=== PATIENT | male | born 1975 | race Caucasian/White ===

== ENCOUNTER → 2018-01-15 16:05 | Outpatient (CLI) | payer MEDICARE, SELFPAY | PROVIDERS: Visit Provider Otolaryngology | DX: H92.10 Otorrhea, unspecified ear (principal) | CPT/HCPCS: 87070; 87075; 87077; 87107; 87205 ==

== ENCOUNTER 2018-05-17 17:24 | Emergency (ER) | payer MEDICARE, SELFPAY ==
[2018-05-17 17:26] VITALS: RESP 22; BMI 43.2
[2018-05-17] MEDS: Haloperidol Lactate 5 MG/ML Vial 10 MG IM (17:39)
[2018-05-17] MEDS: DiphenhydrAMINE 50 MG/ML Syringe IM (17:39)
--- NOTE | 2018-05-17 17:39 | ED.VISSUMM ---
- ER Visit Summary Date of Service: 05/17/18 Chief Complaint: Agitation History of Present Illness: The patient is a 42 M brought in from the [facility] for acute psychosis he was pink slipped prior to arrival. I have minimal history from the patient himself since he has incomprehensible thoughts, he is quite a bit of voodoo wording, however this makes no sense to me. He has tangential thoughts. Per police department he has a history of violence in the police is worried that he may be violent now he is somewhat uncooperative. He has a history of schizophrenia with psychosis. Physical Examination: Patient has handcuffs with arms behind him for his safety. Moist mucous membranes, no obvious facial deformity No C-spine tenderness supple neck. Regular rate and rhythm without any obvious murmurs Clear lungs bilaterally speaking in full sentences without any obvious respiratory distress Abdomen soft and nontender Moves all extremities without any difficulty or pain. Skin does not show any obvious rashes or lesions, no trauma. Patient has incoherent thought process, no judgment or insight. He does not respond to most questions. His speech is pressured. I get a generalized feeling of being afraid when I am in the room. Emergency Department Course and Treatment: Patient received Haldol and Benadryl IM, he is now significantly improved, he is still psychotic but is more cooperative. He will need psychiatric hospitalization I called crisis for this. Workup is unremarkable Disposition: [Plan is to transfer to psychiatric facility] Impression: [Acute psychosis] This note was generated with [employer] dictation software. It may contain incorrect words, spelling, and punctuation that were not noted in review of the chart prior to signing ED Disposition - Plan for ED Patient: Chief Complaint: Mental Health
--- NOTE | 2018-05-17 17:42 | ED.DCSUM_ITS ---
- ER Visit Summary Date of Service: 05/17/18 Chief Complaint: Agitation History of Present Illness: The patient is a 42 M brought in from the [facility] for acute psychosis he was pink slipped prior to arrival. I have minimal history from the patient himself since he has incomprehensible thoughts, he is quite a bit of baptist wording, however this makes no sense to me. He has tangential thoughts. Per police department he has a history of violence in the police is worried that he may be violent now he is somewhat uncooperative. He has a history of schizophrenia with psychosis. Physical Examination: Patient has handcuffs with arms behind him for his safety. Moist mucous membranes, no obvious facial deformity No C-spine tenderness supple neck. Regular rate and rhythm without any obvious murmurs Clear lungs bilaterally speaking in full sentences without any obvious respiratory distress Abdomen soft and nontender Moves all extremities without any difficulty or pain. Skin does not show any obvious rashes or lesions, no trauma. Patient has incoherent thought process, no judgment or insight. He does not respond to most questions. His speech is pressured. I get a generalized feeling of being afraid when I am in the room. Emergency Department Course and Treatment: Patient received Haldol and Benadryl IM, he is now significantly improved, he is still psychotic but is more cooperative. He will need psychiatric hospitalization I called crisis for this. Workup is unremarkable Disposition: [Plan is to transfer to psychiatric facility] Impression: [Acute psychosis] This note was generated with indidebt dictation software. It may contain incorrect words, spelling, and punctuation that were not noted in review of the chart prior to signing ED Disposition - Plan for ED Patient: Chief Complaint: Mental Health
--- NOTE | 2018-05-17 18:10 | ED.RN ---
THE POLICE OFFICERS WERE TAKING THE HANDCUFFS OFF FROM BEHIND THE PATIENT BACK, THE NURSE AND ROAD MANAGER ASKED IF THE PATIENT WAS GOING TO REMAIN IN BED, THE PATIENT THEN STATED I WILL LEAVE FAST A HICCUP IF THE CUFFS WERE TAKEN OFF
[2018-05-17 18:17] VITALS: BP 160/88; PULSE 119; RESP 20; TEMP 36.8; O2SAT 98
[2018-05-17 18:45] LABS: Absolute Lymphocyte Count 1.72 X10^3/ul (0.83-4.51); Absolute Neutrophil Count 6.6 X10^3/uL (2.0-7.7); Basophil# 0.02 X10^3/uL; Basophil% 0.2 % (0-1); Eosinophil# 0.08 X10^3/uL; Eosinophils% 0.9 % (0-5); Hematocrit 41.7 % (40-54); Hemoglobin 14.7 g/dl (13.0-16.5); Lymphocyte # 1.72 X10^3/ul (4.0); Lymphocyte % 18.3 % (19-41); Mean Corp Hgb Conc 35.3 g/gl (32-36); Mean Corpuscular Hgb 28.5 pg (27.0-32.0); Mean Corpuscular Volume 80.8 fL (80-94); Mean Platelet Vol. 11.9 fl (6.2-12.0); Monocyte# 0.94 X10^3/uL; Neutrophil # 6.59 X10^3/uL (2.7-7.7); Neutrophil % 70.3 % (47-70); Platelet Count 211 K/mm3 (150-450); RBC Distribution Width CV 14.6 % (11.6-14.6); RBC Distribution Width SD 42.4 fl (35.1-43.9); Red Blood Count 5.16 M/mm3 (4.6-6.2); White Blood Count 9.4 K/mm3 (4.4-11.0)
[2018-05-17 18:50] LABS: POSITIVE COUNT NO; POSITIVE DIFFERENTIAL NO; POSITIVE MORPHOLOGY NO
[2018-05-17 18:54] LABS: Anion Gap 12 (5-15); BUN 12 mg/dL (7-18); BUN/Creat Ratio 9.8 RATIO (10-20); Calcium,Total 9.2 mg/dL (8.5-10.1); Chloride 97 mmol/L (98-107); Creatinine, Serum 1.23 mg/dL (0.70-1.30); EST Glomerular Filtration Rate 69 mL/min (>60); Est Glom Filt Rate - Afr Amer 83 mL/min (>60); Estimated Creatinine Clearance 91.89 ml/min; Glucose 433 mg/dL (74-106); Potassium 4.4 mmol/L (3.5-5.1); Sodium Level 132 mmol/L (136-145)
[2018-05-17 18:55] LABS: Alcohol, Blood (Medical)-Serum < 3.0 mg/dL
[2018-05-17 19:00] VITALS: RESP 20; O2SAT 97
[2018-05-17 19:36] LABS: Bedside Glucose 405 mg/dL (70-110)
[2018-05-17 19:47] LABS: Amphetamine Urine VISTA NEGATIVE (<1000 ng/mL); Barbiturate Urine VISTA NEGATIVE (< 200 ng/mL); Benzodiazepine Urine VISTA NEGATIVE (< 200 ng/mL); Cocaine Urine VISTA NEGATIVE (< 300 ng/mL); Ecstacy Urine VISTA NEGATIVE (< 500 ng/mL); Methadone Urine VISTA NEGATIVE (< 300 ng/mL); PCP Urine VISTA NEGATIVE (< 25 ng/mL); THC Urine VISTA NEGATIVE (< 50 ng/mL); Vista UDS pH Range 5
[2018-05-17 20:05] VITALS: RESP 18; O2SAT 98
--- NOTE | 2018-05-17 21:02 | ED.RN ---
PT UP WALKING AROUND THE ROOM AND WALKING OUT TO THE NURSE'S STATION. PT ACCUSING THE WKAME SNOW SHOVELER OF GOING FOR HIS WEAPON. PT STANDING AT THE DOOR TALKING THAT IS UNABLE TO BE UNDERSTOOD. PT GETTING INCREASINGLY AGITATED. DR SMITH NOTIFIED OF THE SAME
[2018-05-17 21:07] VITALS: RESP 18; O2SAT 97
--- NOTE | 2018-05-17 21:40 | ED.RN ---
PT UP MOVING AROUND THE ROOM, APPEARS TO BE GETTING MORE AGITATED. PT HITTING THE SHARPS CONTAINER IN THE ROOM. BROTHER IN THE ROOM ATTEMPTING TO TALK WITH THE PATIENT
[2018-05-17] MEDS: Ziprasidone IM 20 MG/ML VIAL 10 MG IM (21:50)
[2018-05-17] MEDS: LORazepam 2 MG/ML Syringe IM (21:51)
--- NOTE | 2018-05-17 21:58 | ED.RN ---
PATIENT WAS STARTING TO GET MORE AGITATED, PT WAS UP WALKING AROUND ROOM TRYING TO WALK OUT, BROTHER WAS TRYING TO CONVINCE PATIENT TO LAY BACK DOWN, PATIENT WAS STARTING TO TALK AND GO ON ABOUT RANDOM THINGS.
[2018-05-17 23:03] VITALS: BP 132/90; PULSE 120; RESP 18; O2SAT 96
[2018-05-18] VITALS (17 sets, daily range): BP systolic 125–138; BP diastolic 64–78; PULSE 89–121; RESP 14–20; O2SAT 94–99
--- NOTE | 2018-05-18 02:40 | ED.RN ---
juan miguel from [facility] called to let us know she needs more information. she needs an ekg, liver enzymes, 2 glucose readings under 200 and a sodium level better than his 132. Notified Dr. Nesbitt.
--- NOTE | 2018-05-18 02:43 | EKG12_ITS ---
[place] Reason : [facility] [place] Pressure : / mmHG Vent. Rate : 120 BPM Atrial Rate : 120 BPM P-R Int : 148 ms QRS Dur : 092 ms QT Int : 320 ms P-R-T Axes : 057 -05 077 degrees QTc Int : 452 ms Sinus tachycardia Otherwise normal ECG Confirmed by HARVINDER ALEX, RIANA ([id number]), scientific editor NINA PACKER ([id number]) on 05/20/2018 9:41:33 AM Referred By: VICTORIANO Confirmed By:RIANA BLANTON MD
[2018-05-18 02:45] LABS: Bedside Glucose 347 mg/dL (70-110)
[2018-05-18] MEDS: Insulin Lispro 100 UNIT/ML INSULN.PEN 12 UNIT SC (02:58)
[2018-05-18 05:15] LABS: Bedside Glucose 380 mg/dL (70-110)
--- NOTE | 2018-05-18 05:22 | ED.RN ---
BROTHER CAME TO THE NURSE'S STATION STATING PT GETTING ANXIOUS AGAIN. CAN HE HAVE SOME MORE MEDICINE. THIS NURSE SPOKE WITH DR PASTRANA ABOUT THE SAME. ORDER PLACED
[2018-05-18] MEDS: Ziprasidone IM 20 MG/ML VIAL 10 MG IM (05:45)
--- NOTE | 2018-05-18 06:19 | ED.RN ---
PT CAME TO THE NURSE'S STATION REQUESTING HIS SHIRT. WHEN THE PT WAS TOLD HE COULD NOT HAVE HIS SHIRT THE PT BECAME UPSET. PT STATES I AM THE [facility]. 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 YOU NEED TO GET OUT. I HAVE BEEN IN THIS ROOM FOR THE PAST 24 HOURS. I AM THE LAST [place] WITNESS ON THE [place]. THE PT BROTHER ATTEMPTING TO CONVINCE THE PATIENT TO GO BACK INTO THE ROOM. PT STATES I DO NOT LIKE THE ACOUSTICS IN THIS ROOM. GET ME ANOTHER ROOM. PT INFORMED THERE ARE NO OTHER ROOMS AVAILABLE AT THIS TIME APPROPRIATE FOR THE PATIENT.
[2018-05-18] MEDS: LORazepam 2 MG/ML Syringe IM (06:28)
--- NOTE | 2018-05-18 06:34 | ED.RN ---
PER [facility], UNABLE TO ACCEPT THE PATIENT
--- NOTE | 2018-05-18 09:50 | ED.RN ---
[facility] WILL NOT BE AVAILABLE FOR A COUPLE HOURS
--- NOTE | 2018-05-18 11:45 | NURSING ---
WE WILL CALL YOU WHEN THE [facility] IS ON THE WAY. THEY WON'T BE AVAILABLE UNTIL SOMETIME THIS AFTERNOON.
--- NOTE | 2018-05-18 14:00 | ED.RN ---
called [facility], states that [facility] will be here in hr and a half
== END 2018-05-18 16:53 ==
PROVIDERS: Emergency Provider Emergency Medicine
DX: F20.9 Schizophrenia, unspecified (principal); E11.9 Type 2 diabetes mellitus without complications; Z91.14 Patient's other noncompliance with medication regimen; Z79.899 Other long term (current) drug therapy
CPT/HCPCS: 36415; 80048; 80307; 80320; 82962; 85025; 93005; 96372; 99285; G0480; J3486

== ENCOUNTER 2021-11-28 12:30 | Outpatient (CLI) | payer MEDICARE, MEDICAID, SELFPAY ==
[2021-11-28 12:31] VITALS: BP 204/106; PULSE 101; RESP 16; TEMP 36.3; O2SAT 97; BMI 44.9
[2021-11-28 12:39] VITALS: BMI 44.9
--- NOTE | 2021-11-28 13:24 | ED.RN ---
WRITTEN ORDER TO ADMINISTER PER DR KEENAN ON FILE
== END 2021-11-28 13:24 | disposition home or self-care (01) ==
LOC: ED 13:09 → EDREF 14:44
PROVIDERS: Visit Provider Emergency Medicine
DX: Z00.00 Encounter for general adult medical examination without abnormal findings (principal)

== ENCOUNTER 2023-05-05 17:41 | Emergency (ER) | payer MEDICARE, MEDICAID, SELFPAY ==
[2023-05-05 17:44] VITALS: BP 194/87; PULSE 96; RESP 18; TEMP 36.2; O2SAT 94
[2023-05-05 17:50] VITALS: BMI 52.2
[2023-05-05 18:01] VITALS: O2SAT 99
--- NOTE | 2023-05-05 18:01 | EKG12_ITS ---
Test Reason : Blood Pressure : / mmHG Vent. Rate : 090 BPM Atrial Rate : 090 BPM P-R Int : 160 ms QRS Dur : 096 ms QT Int : 344 ms P-R-T Axes : 046 -19 058 degrees QTc Int : 420 ms Normal sinus rhythm Normal ECG Confirmed by RIANA BLANTON MD ([id number]), manuscript editor REY CONCEPCION ([id number]) on 05/08/2023 1:13:51 PM Referred By: JUSTIN Confirmed By:RIANA BLANTON MD
--- NOTE | 2023-05-05 18:02 | CT_ITS ---
STUDY: CT BRAIN WITHOUT CONTRAST REASON FOR EXAM: Male, 47 years old. dizziness RADIATION DOSAGE (If Supplied By Facility): CTDIvol = ( 44.99 ) mGy, DLP = ( 931.09 ) mGycm TECHNIQUE: Transaxial CT imaging of the brain was performed without administration of intravenous contrast material. Individualized dose optimization techniques were used for this CT. COMPARISON: No relevant priors. FINDINGS: Normal soft tissue structures. Normal calvarium. Normal size ventricles and extra-axial spaces for the patient''s age. Normal white matter tracts of the cerebral hemispheres. Normal basal ganglia and thalami. Normal brainstem. Normal cerebellum. There is no intracranial hemorrhage. There are no findings of an acute ischemic infarction. Normal visualized paranasal sinuses. CT/Brain/Head without Contrast IMPRESSION: Normal unenhanced CT scan of the brain. Electronically Signed: Jermaine Jamison MD at 18:39 EDT ,
--- NOTE | 2023-05-05 18:12 | RAD_ITS ---
STUDY: X-RAY CHEST REASON FOR EXAM: Male, 47 years old. chest pain TECHNIQUE: Frontal and lateral views of the chest. COMPARISON: None. FINDINGS: The lungs are clear and expanded. There is no demonstrated pleural abnormality. Normal size heart. Normal mediastinum and massimo. Normal visualized pulmonary arteries. Normal visualized aortic arch and descending thoracic aorta. Normal visualized thoracic spine. Normal visualized ribs, clavicles, and shoulders. There is no demonstrated abnormality of the visualized soft tissue structures of the upper abdomen. RAD/Chest PA and Lateral IMPRESSION: Normal x-ray examination of the chest. Electronically Signed: Jermaine Jamison MD at 18:40 EDT ,
--- NOTE | 2023-05-05 18:16 | EX.ED.DYSGE1 ---
HPI <CALLUM Hu - Last Filed: 05/05/23 20:48> History of Present Illness Chief Complaint: Chest Pain Narrative Narrative: Patient presenting today due to an episode of dizziness that he describes as feeling intoxicated, lightheadedness, diaphoresis, nausea, and left-sided chest tightness that started while he was driving this evening. He reports that it lasted for about 5 to 10 minutes. He did begin to dry heave but did not have any vomiting. He reports that he has had panic attacks in the past that were similar in symptoms but not this severe. He reports that his symptoms have completely resolved. He denies any history of vertigo. PMH includes type 2 diabetes mellitus, depression, anxiety, bipolar disorder. He reports that about a month ago he noticed floaters and spots in his vision and felt that his visual acuity has not been as good, this started to get better but felt like this morning and may have worsened again. He has not had this evaluated. PFSH <CALLUM Hu - Last Filed: 05/05/23 20:48> PENDING SALE TO [facility] Medical History Acute depression Anxiety Arthritis Bipolar 1 disorder Diabetic neuropathy Gout Psoriasis Type 2 diabetes mellitus Home Medications doxepin 25 mg capsule 25 - 50 mg PO DAILY PRN PRN Anxiety 05/17/18 [History Last Taken Unknown] albuterol sulfate 90 mcg/actuation aerosol inhaler 2 inh inhalation Q4H PRN shortness of breath or wheezing 05/05/23 [History Last Taken Unknown] allopurinol 300 mg tablet 300 mg PO DAILY 05/05/23 [History Last Taken Unknown] atorvastatin 80 mg tablet 80 mg PO QHS 05/05/23 [History Last Taken Unknown] cholecalciferol (vitamin D3) 1,250 mcg (50,000 unit) capsule 50,000 unit PO Q7D 05/05/23 [History Last Taken Unknown] gabapentin 600 mg tablet 600 mg PO Q12H 05/05/23 [History Last Taken Unknown] haloperidol 5 mg tablet 5 mg PO .COMPLEX 05/05/23 [History Last Taken Unknown] hydroxyzine HCl 50 mg tablet 50 mg PO Q8H 05/05/23 [History Last Taken Unknown] ibuprofen 800 mg tablet 800 mg PO Q8H 05/05/23 [History Last Taken Unknown] insulin glargine 100 unit/mL (3 mL) subcutaneous pen (Lantus Solostar U-100 Insulin) 75 unit subcut QHS 05/05/23 [History Last Taken Unknown] insulin lispro 100 unit/mL subcutaneous pen (Humalog KwikPen (U-100) Insulin) 25 unit subcut TIDCM 05/05/23 [History Last Taken Unknown] lisinopril 10 mg tablet 10 mg PO DAILY 05/05/23 [History Last Taken Unknown] metformin 500 mg tablet 2,000 mg PO QHS 05/05/23 [History Last Taken Unknown] paliperidone palmitate 234 mg/1.5 mL intramuscular syringe (Invega Sustenna) 234 mg IM Q30D 05/05/23 [History Last Taken Unknown] sitagliptin phosphate 100 mg tablet (Januvia) 100 mg PO DAILY 05/05/23 [History Last Taken Unknown] Allergy/AdvReac Type Severity Reaction Status Date / Time hydrocodone Allergy Mild Itching Verified 05/05/23 17:43 oxycodone Allergy Mild Itching Verified 05/05/23 17:43 Surgical History Hx of tonsillectomy Social History Smoking Status: Former smoker ROS <CALLUM Hu - Last Filed: 05/05/23 20:48> ROS ED Constitutional Constitutional ED: Denies chills or fever(s) Cardiovascular Cardiovascular: Reports chest pain; Denies palpitations Respiratory/Chest Respiratory/Chest: Denies cough, dyspnea or dyspnea on exertion Gastrointestinal Gastrointestinal: Reports nausea; Denies abdominal pain or vomiting Musculoskeletal Musculoskeletal: Denies arthralgias or myalgias Neurologic Neurologic: Reports dizziness; Denies headache(s) EXAM <CALLUM Hu - Last Filed: 05/05/23 20:48> Physical Exam Const Vital Signs: 05/05/23 17:44 05/05/23 18:01 05/05/23 20:44 Temperature 97.1 F L 98.6 F Temperature Source Temporal Pulse Rate 96 78 Respiratory Rate 18 14 Blood Pressure 194/87 H 145/76 H Blood Pressure Mean 122 Pulse Ox 94 99 97 Oxygen Delivery Method Room Air Room Air Positive well nourished, well developed and no apparent distress General Appearance ED: well developed HEENT Reports normocephalic and head/scalp atraumatic Mouth ED: Yes moist mucous membranes normal Eyes PERRL and EOMs intact bilaterally Neck full ROM and supple Chest Wall inspection of chest normal Resp normal respiratory effort and clear to auscultation bilaterally Cardio regular rate and regular rhythm GI soft to palpation, non-tender, non-distended and no masses Back/Spine normal ROM and normal to inspection Extremity normal to inspection and full ROM Neuro oriented x3, CN's II-XII intact bilaterally, moves all extremities, no focal motor deficits and no sensory deficits noted Sensorium / Orientation: awake and alert Gait (Neuro): normal gait Motor Exam: strength 5/5 throughout Psych mental status grossly normal and thought process normal Skin no rashes or lesions noted and no wounds <Dr. Eddy Carbone MD - Last Filed: 05/05/23 22:32> Physical Exam Const Vital Signs: 05/05/23 17:44 05/05/23 18:01 05/05/23 20:44 Temperature 97.1 F L 98.6 F Temperature Source Temporal Pulse Rate 96 78 Respiratory Rate 18 14 Blood Pressure 194/87 H 145/76 H Blood Pressure Mean 122 Pulse Ox 94 99 97 Oxygen Delivery Method Room Air Room Air MDM <CALLUM Hu - Last Filed: 05/05/23 20:48> [facility] Narrative Medical decision making narrative: Patient presenting due to an episode of dizziness that he describes as feeling intoxicated, lightheadedness, dry heaving, nausea, and left-sided chest pain started while he was driving and lasted for about 5 to 10 minutes and completely resolved. He reports that he feels fine now and is upset that his family member brought him in because he wants to go home to, and relax. He is well-appearing and in no acute distress. He is hypertensive here. Labs to be obtained to rule out leukocytosis, anemia, electrolyte abnormality, and ACS. Head CT will be obtained. Delta troponin WNL, EKG is normal sinus rhythm. This could possibly be a vasovagal episode or vertigo. Head CT unremarkable. Labs overall unremarkable aside from mild anemia and elevated glucose. Patient reports that he needs a podiatry referral, I will give him this. He is to follow-up with his PCP and will be discharged home in stable condition. He is comfortable with plan. NIH 0. I have personally performed a face to face assessment of the patient and have reviewed the ALEJANDRINA Note. I performed a substantive portion of the visit including all aspects of the following. My garza findings include: History is remarkable for nausea, diaphoresis, dizziness, which she defines as spinning and chest discomfort. His symptoms started while he was driving. He was going to [place] to get sandwiches with the family. He denied double vision or blurred vision. He denied headache. He denied neck pain or neck stiffness. He is not a good informant. Brother assisted and drove him home and then to the emergency department. His blood sugar at home was 136. Brother states he was pale, clammy and profusely sweating. He subsequently developed some chest discomfort. He denies vomiting or diarrhea. He denies black or maroon stool. He denies urologic symptoms. Exam is remarkable for morbid obesity. HEENT exam is unremarkable. Neck is supple. Lungs are clear to auscultation. Heart is regular and there is no murmur, gallop or rub. Rate is normal. Abdomen is soft flabby nontender. Unable to appreciate palpable pulsatile mass. Patient has edema of his lower extremities. He is alert oriented x3. Cranials 2 through 12 are intact. He moves all extremities with no motor or sensory deficit. There is no clonus or Babinski sign noted. Medical Decision Making suspect patient had a vasovagal episode possible vertigo. Since patient brother was not here with him complaining of vertigo diabetic and hypertension concerned this may represent a problem with the cerebellum a CT of the head was obtained. CT of the head was reviewed by me and no obvious abnormality. Radiology interpretation was reviewed. Electrolyte panel was obtained to assess for hyperglycemia, hypoglycemia and any kidney problems or electrolyte abnormality. CBC to assess H&H. Other additions or changes: [None] Lab Data Attestation: I reviewed the patient's lab results. Labs: Laboratory Results - last 24 hr 05/05/23 05/05/23 18:00 19:59 WBC 8.0 RBC 4.05 L Hgb 11.5 L Hct 34.5 L MCV 85.2 MCH 28.4 MCHC 33.3 RDW Std Deviation 43.7 RDW Coeff of Luciana 14.3 Plt Count 163 MPV 11.9 Immature Gran % (Auto) 0.500 Neut % (Auto) 71.8 H Lymph % (Auto) 18.9 L Snyder % (Auto) 5.7 Eos % (Auto) 2.8 Baso % (Auto) 0.3 Absolute Neuts (auto) 5.7 Absolute Lymphs (auto) 1.50 Nucleated RBC % 0 Sodium 138 Potassium 4.4 Chloride 107 Carbon Dioxide 27.0 Anion Gap 4 L BUN 21 H Creatinine 1.18 Estim Creat Clear Calc 88.40 Est GFR (MDRD) Af Amer 85 Est GFR (MDRD) Non-Af 71 BUN/Creatinine Ratio 17.8 Glucose 267 H Calcium 8.5 Troponin I High Sens 14 11 Radiography X-Ray: Read by ED Physician and Read by Radiologist Diagnostic Testing: Clinical Impression(s) from Imaging Studies Brain CT 05/05/23 18:02 IMPRESSION: Normal unenhanced CT scan of the brain. Electronically Signed: Jermaine Jamison MD at 18:39 EDT , Chest X-Ray 05/05/23 18:12 IMPRESSION: Normal x-ray examination of the chest. Electronically Signed: Jermaine Jamison MD at 18:40 EDT , EKG Initial EKG: Comments: 90 bpm, normal sinus rhythm, no ST elevation, reviewed and interpreted by attending ED physician <Dr. Eddy Carbone MD - Last Filed: 05/05/23 22:32> [facility] MDM Narrative Medical decision making narrative: Patient presenting due to an episode of dizziness that he describes as feeling intoxicated, lightheadedness, dry heaving, nausea, and left-sided chest pain started while he was driving and lasted for about 5 to 10 minutes and completely resolved. He reports that he feels fine now and is upset that his family member brought him in because he wants to go home to, and relax. He is well-appearing and in no acute distress. He is hypertensive here. Labs to be obtained to rule out leukocytosis, anemia, electrolyte abnormality, and ACS. Head CT will be obtained. I have personally performed a face to face assessment of the patient and have reviewed the ALEJANDRINA Note. I performed a substantive portion of the visit including all aspects of the following. My garza findings include: History is remarkable for nausea, diaphoresis, dizziness, which she defines as spinning and chest discomfort. His symptoms started while he was driving. He was going to [place] to get sandwiches with the family. He denied double vision or blurred vision. He denied headache. He denied neck pain or neck stiffness. He is not a good informant. Brother assisted and drove him home and then to the emergency department. His blood sugar at home was 136. Brother states he was pale, clammy and profusely sweating. He subsequently developed some chest discomfort. He denies vomiting or diarrhea. He denies black or maroon stool. He denies urologic symptoms. Exam is remarkable for morbid obesity. HEENT exam is unremarkable. Neck is supple. Lungs are clear to auscultation. Heart is regular and there is no murmur, gallop or rub. Rate is normal. Abdomen is soft flabby nontender. Unable to appreciate palpable pulsatile mass. Patient has edema of his lower extremities. He is alert oriented x3. Cranials 2 through 12 are intact. He moves all extremities with no motor or sensory deficit. There is no clonus or Babinski sign noted. Medical Decision Making suspect patient had a vasovagal episode possible vertigo. Since patient brother was not here with him complaining of vertigo diabetic and hypertension concerned this may represent a problem with the cerebellum a CT of the head was obtained. CT of the head was reviewed by me and no obvious abnormality. Radiology interpretation was reviewed. Electrolyte panel was obtained to assess for hyperglycemia, hypoglycemia and any kidney problems or electrolyte abnormality. CBC to assess H&H. Other additions or changes: [None] Lab Data Lab results narrative: White count is normal. Patient has mild anemia with disease. First troponin is normal at 14. Basic metabolic panel is remarked for glucose of 267 with normal CO2 and anion gap. Labs: Laboratory Results - last 24 hr 05/05/23 05/05/23 18:00 19:59 WBC 8.0 RBC 4.05 L Hgb 11.5 L Hct 34.5 L MCV 85.2 MCH 28.4 MCHC 33.3 RDW Std Deviation 43.7 RDW Coeff of Luciana 14.3 Plt Count 163 MPV 11.9 Immature Gran % (Auto) 0.500 Neut % (Auto) 71.8 H Lymph % (Auto) 18.9 L Snyder % (Auto) 5.7 Eos % (Auto) 2.8 Baso % (Auto) 0.3 Absolute Neuts (auto) 5.7 Absolute Lymphs (auto) 1.50 Nucleated RBC % 0 Sodium 138 Potassium 4.4 Chloride 107 Carbon Dioxide 27.0 Anion Gap 4 L BUN 21 H Creatinine 1.18 Estim Creat Clear Calc 88.40 Est GFR (MDRD) Af Amer 85 Est GFR (MDRD) Non-Af 71 BUN/Creatinine Ratio 17.8 Glucose 267 H Calcium 8.5 Troponin I High Sens 14 11 Radiography Diagnostic Testing: Clinical Impression(s) from Imaging Studies Brain CT 05/05/23 18:02 IMPRESSION: Normal unenhanced CT scan of the brain. Electronically Signed: Jermaine Jamison MD at 18:39 EDT , Chest X-Ray 05/05/23 18:12 IMPRESSION: Normal x-ray examination of the chest. Electronically Signed: Jermaine Jamison MD at 18:40 EDT , Discharge Plan Triage Chief Complaint: Chest Pain ED Midlevel Provider: Leilani Yi ED Provider: Eddy Carbone Dx/Rx/DC Orders Clinical Impression: Dizziness, Light headed, Diaphoresis, Chest pain Instructions: ED Chest Pain, Uncertain Cause, ED Dizziness, Uncertain Cause Prescriptions: No Action doxepin 25 MG capsule 25 - 50 mg PO DAILY PRN PRN (Reason: Anxiety) allopurinol 300 mg tablet 300 mg PO DAILY Patient Comments: take 1 tablet by mouth once daily albuterol sulfate 90 mcg/actuation HFA aerosol inhaler 2 inh INHALATION Q4H PRN (Reason: shortness of breath or wheezing) Patient Comments: inhale 2 puffs by mouth every 4 hours if needed for wheezing metformin 500 mg tablet 2,000 mg PO QHS Patient Comments: take 4 tablets by mouth at bedtime atorvastatin 80 mg tablet 80 mg PO QHS Patient Comments: take 1 tablet by mouth at bedtime gabapentin 600 mg tablet 600 mg PO Q12H Patient Comments: take 1 tablet by mouth twice a day haloperidol 5 mg tablet 5 mg PO .COMPLEX Patient Comments: take 1 tablet by mouth once daily if needed 1 week PRIOR TO INJECTION Rx Instructions: 5 mg orally daily one week prior to injection; ibuprofen 800 mg tablet 800 mg PO Q8H Patient Comments: take 1 tablet by mouth three times a day if needed hydroxyzine HCl 50 mg tablet 50 mg PO Q8H Patient Comments: take 1 tablet by mouth three times a day if needed for anxiety lisinopril 10 mg tablet 10 mg PO DAILY Patient Comments: take 1 tablet by mouth once daily insulin lispro [Humalog KwikPen Insulin] 100 unit/mL insulin pen 25 unit SUBCUT TIDCM Patient Comments: inject 25 units subcutaneously three times a day before meals Januvia 100 mg tablet 100 mg PO DAILY Patient Comments: take 1 tablet by mouth daily cholecalciferol (vitamin D3) 1,250 mcg (50,000 unit) capsule 50,000 unit PO Q7D Patient Comments: take 1 capsule by mouth every week insulin glargine [Lantus Solostar U-100 Insulin] 100 unit/mL (3 mL) insulin pen 75 unit SUBCUT QHS Patient Comments: inject 75 units subcutaneously at bedtime Invega Sustenna 234 mg/1.5 mL syringe 234 mg IM Q30D Primary Care Provider: Elizabeth Hurst Referrals: Laz Jin DPM [Med Staff - Active Staff] - 5-7 Days Elizabeth Hurst DO [Primary Care Provider] - Activity Restrictions/Additional Instructions: Please follow-up with your PCP in 5 to 7 days. Follow-up with podiatry as well. Return for any worsening symptoms Disposition Disposition: Home, Self Care Discharge Date/Time: 05/05/23 20:57
[2023-05-05 18:21] LABS: Absolute Neutrophil Count 5.7 X10^3/uL (2.0-7.7); Basophil# 0.02 X10^3/uL; Basophil% 0.3 % (0-1); Eosinophil# 0.22 X10^3/uL; Eosinophils% 2.8 % (0-5); Hematocrit 34.5 % (40-54); Hemoglobin 11.5 g/dL (13.0-16.5); Lymphocyte % 18.9 % (19-41); Mean Corp Hgb Conc 33.3 g/dL (32-36); Mean Corpuscular Hgb 28.4 pg (27.0-32.0); Mean Corpuscular Volume 85.2 fL (80-94); Mean Platelet Vol. 11.9 fl (6.2-12.0); Monocyte# 0.45 X10^3/uL; Monocyte% 5.7 % (0-10); NRBC Flagged by Analyzer 0 % (0-5); Neutrophil # 5.72 X10^3/uL (2.7-7.7); Neutrophil % 71.8 % (47-70); Platelet Count 163 K/mm3 (150-450); RBC Distribution Width CV 14.3 % (11.6-14.6); RBC Distribution Width SD 43.7 fl (35.1-43.9); Red Blood Count 4.05 M/mm3 (4.6-6.2)
[2023-05-05 18:41] LABS: Anion Gap 4 (5-15); BUN 21 mg/dL (7-18); BUN/Creat Ratio 17.8 RATIO (10-20); Calcium,Total 8.5 mg/dL (8.5-10.1); Chloride 107 mmol/L (98-107); Creatinine, Serum 1.18 mg/dL (0.70-1.30); EST Glomerular Filtration Rate 71 mL/min (>60); Est Glom Filt Rate - Afr Amer 85 mL/min (>60); Glucose 267 mg/dL (74-106); Potassium 4.4 mmol/L (3.5-5.1); Sodium Level 138 mmol/L (136-145); Troponin-I HS 14 pg/mL (3.0-78.0)
[2023-05-05 20:26] LABS: Troponin-I HS 11 pg/mL (3.0-78.0)
[2023-05-05 20:44] VITALS: BP 145/76; PULSE 78; RESP 14; TEMP 37; O2SAT 97
== END 2023-05-05 20:57 | disposition home or self-care (01) ==
PROVIDERS: Physician Assistant; Emergency Provider Emergency Medicine; Visit Provider Emergency Medicine
DX: R42 Dizziness and giddiness (principal); F31.9 Bipolar disorder, unspecified; E11.40 Type 2 diabetes mellitus with diabetic neuropathy, unspecified; Z79.4 Long term (current) use of insulin; R61 Generalized hyperhidrosis; R07.9 Chest pain, unspecified; F41.9 Anxiety disorder, unspecified; Z87.891 Personal history of nicotine dependence; Z79.84 Long term (current) use of oral hypoglycemic drugs; Z79.899 Other long term (current) drug therapy
CPT/HCPCS: 70450; 71046; 80048; 84484; 85025; 93005; 99284; A4216

== ENCOUNTER 2023-05-09 23:20 | Observation (INO) | payer MEDICARE, MEDICAID, SELFPAY ==
--- NOTE | 2023-05-09 | RAD_ITS ---
INDICATION: chest pain EXAMINATION/TECHNIQUE: X-RAY - XR Chest 1 View COMPARISON: Chest x-ray from 05/05/2023 FINDINGS: LINES/DEVICES: None. LUNGS: No pulmonary edema or focal airspace consolidation. No sizable pleural effusion. No pneumothorax detected. Stable slightly elevated right hemidiaphragm. MEDIASTINUM AND CARDIOVASCULAR STRUCTURES: Heart size within normal limits. Mediastinal contours unremarkable. BONES AND SOFT TISSUES: No acute findings. RAD/Chest 1 View (Portable) IMPRESSION: No radiographic evidence of acute cardiopulmonary disease. Electronically Signed: Toy Field MD at 1:04 EDT ,
[2023-05-09 23:22] VITALS: BP 182/83; PULSE 81; RESP 17; TEMP 36.6; O2SAT 91
--- NOTE | 2023-05-09 23:34 | EKG12_ITS ---
Test Reason : DYSRHYTHMIA Blood Pressure : / mmHG Vent. Rate : 082 BPM Atrial Rate : 082 BPM P-R Int : 174 ms QRS Dur : 096 ms QT Int : 364 ms P-R-T Axes : 017 -05 063 degrees QTc Int : 425 ms Normal sinus rhythm Normal ECG Confirmed by HARVINDER ALEX, RIANA ([id number]), editorial specialist REY CONCEPCION ([id number]) on 05/12/2023 7:39:03 AM Referred By: WANDA Confirmed By:RIANA BLANTON MD
[2023-05-09 23:36] VITALS: O2SAT 94
[2023-05-09] MEDS: 0.9% Normal Saline (1000mL) 1,000 ML 1000 ML IV (23:44)
[2023-05-10] VITALS (10 sets, daily range): BP systolic 150–201; BP diastolic 81–95; PULSE 77–94; RESP 16–18; TEMP 36.3–36.9; O2SAT 88–99; BMI 49.6
[2023-05-10 00:03] LABS: Absolute Lymphocyte Count 0.98 X10^3/uL (0.83-4.51); Absolute Neutrophil Count 5.9 X10^3/uL (2.0-7.7); Basophil# 0.02 X10^3/uL; Basophil% 0.3 % (0-1); Eosinophil# 0.15 X10^3/uL; Eosinophils% 1.9 % (0-5); Hematocrit 33.6 % (40-54); Hemoglobin 11.2 g/dL (13.0-16.5); Lymphocyte # 0.98 X10^3/ul (0.83-4.51); Lymphocyte % 12.6 % (19-41); Mean Corp Hgb Conc 33.3 g/dL (32-36); Mean Corpuscular Hgb 28.8 pg (27.0-32.0); Mean Corpuscular Volume 86.4 fL (80-94); Mean Platelet Vol. 12.1 fl (6.2-12.0); Monocyte# 0.55 X10^3/uL; Monocyte% 7.1 % (0-10); NRBC Flagged by Analyzer 0 % (0-5); Neutrophil # 5.94 X10^3/uL (2.7-7.7); Neutrophil % 76.6 % (47-70); Platelet Count 149 K/mm3 (150-450); RBC Distribution Width CV 14.5 % (11.6-14.6); RBC Distribution Width SD 44.9 fl (35.1-43.9); Red Blood Count 3.89 M/mm3 (4.6-6.2); White Blood Count 7.8 K/mm3 (4.4-11.0)
--- NOTE | 2023-05-10 00:04 | CT_ITS ---
INDICATION: vision loss, dizziness, emesis EXAMINATION: CTA CAROTIDS AND BRAIN - CTA Head and Neck W/ Contrast Injection (and W/O Contrast Images if performed) TECHNIQUE: Routine unenhanced CT brain performed then CTA of the head and neck was performed with post processing of the angiographic images for volumetric reconstructions. In addition, images were obtained of the [place]ie Ira of [place]. Nascet criteria using the distal ICAs for comparison were used for evaluation of stenoses. 3D reconstructions were reviewed. A radiation dose optimization technique was used for this scan. IV Contrast dosage and agent: 100 cc [id number] COMPARISON: Unenhanced CT brain from 05/05/2023 FINDINGS: -- UNENHANCED BRAIN: No intracranial hemorrhage or evidence of acute major territorial infarct. Mild chronic periventricular white matter lucencies. No intracranial edema, mass effect or midline shift. Normal ventricles, with no hydrocephalus. Calvarium is intact. There is fusion/occipitalization of C1 to skull base. Calvarium is intact. Mastoid air cells are well-pneumatized. Paranasal sinuses are clear. Unremarkable orbits and globes. --NECK: AORTIC ARCH AND BRANCHES: No aneurysm, dissection, occlusion or significant stenosis. RIGHT CCA: No occlusion, significant stenosis or dissection. RIGHT ICA: No occlusion, significant stenosis or dissection. LEFT CCA: No occlusion, significant stenosis or dissection. LEFT ICA: No occlusion, significant stenosis or dissection. RIGHT VERTEBRAL ARTERY: No occlusion, significant stenosis or dissection. LEFT VERTEBRAL ARTERY: No occlusion, significant stenosis or dissection. NECK SOFT TISSUES: No acute findings. LUNG APICES: Clear. BONES: No acute findings. Posterior disc osteophyte complexes resulting in multilevel mild to moderate cervical spinal canal stenosis. --HEAD: --Anterior circulation: ICAs: No significant stenosis at the intracranial/visualized segments. ACAs: No significant stenosis at the visualized segments. ACOM: Present. MCAs: No significant stenosis at the visualized segments. --Posterior circulation: PCOMs: Not visualized. electrical logger: No significant stenosis at the visualized segments. BASILAR ARTERY: No significant stenosis. VERTEBRAL ARTERIES: No significant stenosis at the intradural/visualized segments. No evidence of intracranial aneurysm or vascular malformation. CT/CTA Head AND Neck W/ Contrast IMPRESSION: 1. CTA head and neck with no acute arterial occlusive disease or other acute abnormality. 2. Mild chronic periventricular white matter disease but no evidence of acute intracranial abnormality. 3. Multilevel cervical spondylosis. Electronically Signed: Toy Field MD at 1:54 EDT ,
[2023-05-10 00:14] LABS: AST(SGOT) 13 U/L (15-37); Alanine Aminotransfer ALT/SGPT 23 U/L (16-61); Albumin, Serum 3.3 g/dL (3.2-5.0); Alkaline Phosphatase 69 U/L (45-117); Anion Gap 3 (5-15); BUN 20 mg/dL (7-18); Bilirubin, Direct 0.12 mg/dL (0.00-0.30); Calcium,Total 8.6 mg/dL (8.5-10.1); Chloride 111 mmol/L (98-107); Creatinine, Serum 1.25 mg/dL (0.70-1.30); EST Glomerular Filtration Rate 66 mL/min (>60); Est Glom Filt Rate - Afr Amer 80 mL/min (>60); Glucose 156 mg/dL (74-106); Lipase 40 U/L (13-75); Potassium 4.3 mmol/L (3.5-5.1); Protein, Total 6.3 g/dL (6.4-8.2); Sodium Level 140 mmol/L (136-145); Troponin-I HS 9 pg/mL (3.0-78.0)
--- NOTE | 2023-05-10 00:22 | EX.ED.DYSGE1 ---
HPI History of Present Illness Chief Complaint: General Illness Narrative Narrative: 47-year-old male presenting with dizziness. He is describes it as the room starting to spin but then stabilizes. States that it is repetitive. It started earlier tonight while he was in his home. He went and sat in his bedroom and states that symptoms kept coming. He reports that he had similar symptoms on Thursday and was seen in the ER and had a full work-up which was negative. He tells me that about 3 weeks ago he had a visual field cut in the left eye which was the upper vision which is slowly started to resolve but now he has blurry vision in the left eye. He has not seen a eye doctor. He states that his dizziness did get better initially after he was seen the other day. He was not given anything for vertigo for home. He denies slurred speech, limitation of using arms or legs. Numbness or tingling. His only complaint is intermittent vertiginous symptoms and visual field cut. [facility] Medical History (Updated 05/10/23 @ 02:[address] Anitha Bullock MD) Anxiety Anxiety and depression Arthritis Bipolar 1 disorder Diabetic neuropathy Gout Psoriasis Type 2 diabetes mellitus Home Medications doxepin 25 mg capsule 25 - 50 mg PO DAILY PRN PRN Anxiety 05/17/18 [History Last Taken Unknown] albuterol sulfate 90 mcg/actuation aerosol inhaler 2 inh inhalation Q4H PRN shortness of breath or wheezing 05/05/23 [History Last Taken Unknown] allopurinol 300 mg tablet 300 mg PO DAILY 05/05/23 [History Last Taken Unknown] atorvastatin 80 mg tablet 80 mg PO QHS 05/05/23 [History Last Taken Unknown] cholecalciferol (vitamin D3) 1,250 mcg (50,000 unit) capsule 50,000 unit PO Q7D 05/05/23 [History Last Taken Unknown] gabapentin 600 mg tablet 600 mg PO Q12H 05/05/23 [History Last Taken Unknown] haloperidol 5 mg tablet 5 mg PO .COMPLEX 05/05/23 [History Last Taken Unknown] hydroxyzine HCl 50 mg tablet 50 mg PO Q8H 05/05/23 [History Last Taken Unknown] ibuprofen 800 mg tablet 800 mg PO Q8H 05/05/23 [History Last Taken Unknown] insulin glargine 100 unit/mL (3 mL) subcutaneous pen (Lantus Solostar U-100 Insulin) 75 unit subcut QHS 05/05/23 [History Last Taken Unknown] insulin lispro 100 unit/mL subcutaneous pen (Humalog KwikPen (U-100) Insulin) 25 unit subcut TIDCM 05/05/23 [History Last Taken Unknown] lisinopril 10 mg tablet 10 mg PO DAILY 05/05/23 [History Last Taken Unknown] metformin 500 mg tablet 2,000 mg PO QHS 05/05/23 [History Last Taken Unknown] paliperidone palmitate 234 mg/1.5 mL intramuscular syringe (Invega Sustenna) 234 mg IM Q30D 05/05/23 [History Last Taken 05/08/23] sitagliptin phosphate 100 mg tablet (Januvia) 100 mg PO DAILY 05/05/23 [History Last Taken Unknown] Allergy/AdvReac Type Severity Reaction Status Date / Time hydrocodone Allergy Mild Itching Verified 05/05/23 17:43 oxycodone Allergy Mild Itching Verified 05/05/23 17:43 Family History Mother Hypertension Diabetes Father Anxiety and depression Paranoid schizophrenia Suicide and self-inflicted injury by firearm Surgical History Hx of tonsillectomy Social History (Updated 05/10/23 @ 02:[address] Anitha Bullock MD) household members: none Smoking Status: Former smoker alcohol intake: never substance use type: does not use ROS ROS ED Constitutional Constitutional ED: Denies chills, fever(s) or sweats Eyes Eyes: Reports blurry vision left and change in vision left ENT ENT ED: Denies ear pain or sore throat Cardiovascular Cardiovascular: Denies chest pain, palpitations or racing heartbeat Respiratory/Chest Respiratory/Chest: Denies cough, dyspnea or sputum Gastrointestinal Gastrointestinal: Reports nausea and vomiting; Denies abdominal pain, constipation or diarrhea Genitourinary Genitourinary ED: Denies dysuria, hematuria or urinary frequency Musculoskeletal Musculoskeletal: Denies arthralgias, myalgias or neck pain Integumentary Denies abscess, Abrasions or rash Neurologic Neurologic: Denies headache(s), paresthesias or weakness Psychiatric Psychiatric: Denies anxiety, depression, suicidal ideation or suicidal thoughts Endocrine Endocrinology: Denies polydipsia or polyuria EXAM Physical Exam Const Vital Signs: 05/09/23 23:22 05/09/23 23:26 05/09/23 23:36 Temperature 97.9 F Temperature Source Oral Pulse Rate 81 Respiratory Rate 17 Respiratory Effort Normal Non-Labored Respiratory Pattern Normal Blood Pressure 182/83 H Blood Pressure Mean 116 Pulse Ox 91 94 Oxygen Delivery Method Room Air Room Air 05/10/23 01:21 Temperature Temperature Source Pulse Rate 77 Respiratory Rate 17 Respiratory Effort Respiratory Pattern Blood Pressure 192/94 H Blood Pressure Mean 126 Pulse Ox 96 Oxygen Delivery Method Room Air Positive well nourished General Appearance ED: NAD; Negative for pallor HEENT Reports moist mucous membranes Eyes PERRL and EOMs intact bilaterally Neck no lymphadenopathy Chest Wall inspection of chest normal Resp normal respiratory effort and clear to auscultation bilaterally Auscultation: Negative for rales, rhonchi or wheezes Cardio regular rate and regular rhythm GI normal to inspection, nondistended, normoactive bowel sounds Neuro oriented x3 and CN's II-XII intact bilaterally Sensorium / Orientation: alert Motor Exam: strength 5/5 throughout Psych mental status grossly normal Skin no rashes or lesions noted and no wounds General Skin Exam: Negative for jaundice or pallor MDM MDM MDM Narrative Medical decision making narrative: 47-year-old male presenting with dizziness and visual field cut in his left eye which is slowly improved but is now blurring. He states he cannot read with his left eye. He can finger count in the room although he states he cannot do things. No other focal neurologic deficits or lateralizing signs or symptoms. Differential includes stroke, dehydration, electrolyte normalities, vertigo, ACS, dysrhythmia. Patient initially stated that his nausea/vomiting had improved although he did have another bout of vomiting in the room. He was given 4 mg of Zofran. CBC was obtained to assess white blood cell count, hemoglobin, platelets. Due to assess liver function, renal function, electrolytes. Lipase to assess for pancreatitis. High-sensitivity troponin and EKG were obtained ischemia/dysrhythmia. EKG showed a normal sinus rhythm with a ventricular rate of 82 bpm without sign of ischemic change or dysrhythmia on my interpretation. Chest x-ray my interpretation is no acute process. CBC and CMP unremarkable. Base is normal. Troponin 9. CT brain and CTA of the head and neck are negative as interpreted by radiologist. Patient still having trouble with nausea and has vomited a couple of times. He states he feels dizzy again. He was given meclizine but vomited this up. He will given a dose of Phenergan and then he will be given a dose of Valium. Patient was up with nursing and was unable to walk or stand up due to dizziness. He almost fell. After lengthy discussion we will admit him to the hospital to rule out posterior circulation stroke. Patient amenable to this. Impression: 1. Dizziness 2. TIA 3. Left eye visual disturbance Lab Data Attestation: I reviewed the patient's lab results. Labs: Laboratory Results - last 24 hr 05/09/23 23:45 WBC 7.8 RBC 3.89 L Hgb 11.2 L Hct 33.6 L MCV 86.4 MCH 28.8 MCHC 33.3 RDW Std Deviation 44.9 H RDW Coeff of Luciana 14.5 Plt Count 149 L MPV 12.1 H Immature Gran % (Auto) 1.500 H Neut % (Auto) 76.6 H Lymph % (Auto) 12.6 L [place] % (Auto) 7.1 Eos % (Auto) 1.9 Baso % (Auto) 0.3 Absolute Neuts (auto) 5.9 Absolute Lymphs (auto) 0.98 Nucleated RBC % 0 Sodium 140 Potassium 4.3 Chloride 111 H Carbon Dioxide 26.0 Anion Gap 3 L BUN 20 H Creatinine 1.25 Est GFR (MDRD) Af Amer 80 Est GFR (MDRD) Non-Af 66 BUN/Creatinine Ratio 16.0 Glucose 156 H Calcium 8.6 Magnesium 1.5 L Total Bilirubin 0.30 Direct Bilirubin 0.12 AST 13 L ALT 23 Alkaline Phosphatase 69 Troponin I High Sens 9 Total Protein 6.3 L Albumin 3.3 Globulin 3.0 Lipase 40 Radiography Diagnostic Testing: Clinical Impression(s) from Imaging Studies Chest X-Ray 05/09/23 00:00 IMPRESSION: No radiographic evidence of acute cardiopulmonary disease. Electronically Signed: Toy Field MD at 1:04 EDT , Head/Neck CTA 05/10/23 00:04 IMPRESSION: 1. CTA head and neck with no acute arterial occlusive disease or other acute abnormality. 2. Mild chronic periventricular white matter disease but no evidence of acute intracranial abnormality. 3. Multilevel cervical spondylosis. Electronically Signed: Toy Field MD at 1:54 EDT , Discharge Plan Triage Chief Complaint: General Illness ED Provider: Paulino Ashley Dx/Rx/DC Orders Primary Care Provider: Elizabeth Hurst
[2023-05-10] MEDS: Ondansetron 4 MG/2 ML Vial IV (00:23)
--- NOTE | 2023-05-10 02:17 | HP.PCM.HOS_ITS ---
HPI - General General Date of Admission: 05/10/23 Date of Service: 05/10/23 Chief Complaint: Dizziness, vertigo, nausea/emesis, recent left ear pain. HPI Narrative The patient is a 47 y/o M w/ PMHx: Anxiety and Depression/Bipolar disorder/[place] spected Schizophrenia, Diabetes mellitus type II with chronic neuropathy, Gout, Psoriasis, Former tobacco use, Morbid obesity who presents to the [facility] ED on 05/10/23 with history of recurrent episode of dizziness described as of the room starting to spin but eventually improves and unfortunately recurring similar to his previous episode prompting ED evaluation 05/05/2023 as well as a transient for visual field cut in the left eye specifically the upper vision which has slowly resolved but he does report now having blurry vision in the left eye. Patient during evaluation did finally admit that he had had left ear discomfort ongoing for over a week initially prior to the onset of his symptoms when he initially presented to the ED and they seem to have improved mildly but he still has them. Patient was seen on 05/05/2023 for episode of dizziness with description of feeling lightheadedness, unstable, intoxicated, diaphoretic with nausea and left-sided chest heaviness at that time lasting 5 to 10 minutes with history of panic attacks which were similar to his presentation but reportedly not as severe with at that evaluation work-up including CT of the head with no acute intracranial findings, unremarkable CBC with mild anemia, troponin 14, BMP with glucose 267 otherwise not marked appearing. Patient eventually insistent on returning to his home and it was suspected may be that patient had possible vertigo versus vasovagal episode. Work-up in the ED included T97.9, heart rate 81, BP 182/83, respiratory rate 91 to 94% on room air, CBC with WBC 7.8, hemoglobin 7.2, MCV 86.4, platelet 149 with increased immature granulocytes, CMP with chloride 111, BUN/creatinine 20/1.25, glucose 156 otherwise hepatic profile not marked appearing, lipase 40, troponin 9, chest x-ray with no acute c ardiopulmonary findings, CTA head and neck with no acute arterial occlusive disease or other acute abnormality, mild chronic periventricular white matter disease but no evidence of any acute intracranial abnormality, multilevel cervical spondylosis, EKG with sinus rhythm with no acute evidence of ischemia. While in the ED patient had onset symptoms with nausea, emesis and was unable to even ambulate. He was unable to move in the ED following onset of the symptoms secondary to onset severe vertigo. [facility] Medical History (Updated 05/10/23 @ 02:[address] Anitha Bullock MD) Anxiety Anxiety and depression Arthritis Bipolar 1 disorder Diabetic neuropathy Gout Psoriasis Type 2 diabetes mellitus Home Medications doxepin 25 mg capsule 25 - 50 mg PO DAILY PRN PRN Anxiety 05/17/18 [History Last Taken Unknown] albuterol sulfate 90 mcg/actuation aerosol inhaler 2 inh inhalation Q4H PRN shortness of breath or wheezing 05/05/23 [History Last Taken Unknown] allopurinol 300 mg tablet 300 mg PO DAILY 05/05/23 [History Last Taken Unknown] atorvastatin 80 mg tablet 80 mg PO QHS 05/05/23 [History Last Taken Unknown] cholecalciferol (vitamin D3) 1,250 mcg (50,000 unit) capsule 50,000 unit PO Q7D 05/05/23 [History Last Taken Unknown] gabapentin 600 mg tablet 600 mg PO Q12H 05/05/23 [History Last Taken Unknown] haloperidol 5 mg tablet 5 mg PO .COMPLEX 05/05/23 [History Last Taken Unknown] hydroxyzine HCl 50 mg tablet 50 mg PO Q8H 05/05/23 [History Last Taken Unknown] ibuprofen 800 mg tablet 800 mg PO Q8H 05/05/23 [History Last Taken Unknown] insulin glargine 100 unit/mL (3 mL) subcutaneous pen (Lantus Solostar U-100 Insulin) 75 unit subcut QHS 05/05/23 [History Last Taken Unknown] insulin lispro 100 unit/mL subcutaneous pen (Humalog KwikPen (U-100) Insulin) 25 unit subcut TIDCM 05/05/23 [History Last Taken Unknown] lisinopril 10 mg tablet 10 mg PO DAILY 05/05/23 [History Last Taken Unknown] metformin 500 mg tablet 2,000 mg PO QHS 05/05/23 [History Last Taken Unknown] paliperidone palmitate 234 mg/1.5 mL intramuscular syringe (Invega Sustenna) 234 mg IM Q30D 05/05/23 [History Last Taken 05/08/23] sitagliptin phosphate 100 mg tablet (Januvia) 100 mg PO DAILY 05/05/23 [History Last Taken Unknown] Allergy/AdvReac Type Severity Reaction Status Date / Time hydrocodone Allergy Mild Itching Verified 05/05/23 17:43 oxycodone Allergy Mild Itching Verified 05/05/23 17:43 Family History Mother Hypertension Diabetes Father Anxiety and depression Paranoid schizophrenia Suicide and self-inflicted injury by firearm Surgical History Hx of tonsillectomy Social History (Updated 05/10/23 @ 02:[address] Anitha Bullock MD) household members: none Smoking Status: Former smoker alcohol intake: never substance use type: does not use ROS ROS Narrative Admission Review of Systems: CONSTITUTIONAL: No weight loss, fever, chills, + weakness or fatigue. HEENT: + Prior left upper field vision deficit now primarily blurry but improved, L ear pain. Eyes: No double vision or yellow sclerae. Ears, Nose, Throat: No hearing loss, sneezing, congestion, runny nose or sore throat. SKIN: No rash or itching, lesions, wounds. CARDIOVASCULAR: + Lightheaded/dizziness. No chest pain, chest pressure or chest discomfort, palpitations, edema, orthopnea, syncopal events. RESPIRATORY: No shortness of breath, cough or sputum, wheezing, hemoptysis. GASTROINTESTINAL: + nausea, emesis with onset vertigo. No diarrhea, abdominal pain, melena, BRBPR. GENITOURINARY: No dysuria, frequency, urgency or retention. NEUROLOGICAL: + Transient left upper field vision deficit now primarily blurry, persistent dizziness with occasional room spinning sensation, intermittent. No headache, syncope, paralysis, ataxia, numbness or tingling in the extremities, focal weakness, change in bowel or bladder control, seizure. MUSCULOSKELETAL: + muscle, back pain, joint pain or stiffness. HEMATOLOGIC: + anemia. No bleeding or bruising. LYMPHATICS: No enlarged nodes. No history of splenectomy. PSYCHIATRIC: + history of depression or anxiety. ENDOCRINOLOGIC: + reports of sweating. No cold or heat intolerance. No polyuria or polydipsia. ALLERGIES: No history of asthma, hives, eczema or rhinitis. Vital Signs Vital Signs Vital Signs: 05/09/23 23:22 05/09/23 23:26 05/09/23 23:36 Temperature 97.9 F Temperature Source Oral Pulse Rate 81 Respiratory Rate 17 Respiratory Effort Normal Non-Labored Respiratory Pattern Normal Blood Pressure 182/83 H Blood Pressure Mean 116 Pulse Ox 91 94 Oxygen Delivery Method Room Air Room Air 05/10/23 01:21 Temperature Temperature Source Pulse Rate 77 Respiratory Rate 17 Respiratory Effort Respiratory Pattern Blood Pressure 192/94 H Blood Pressure Mean 126 Pulse Ox 96 Oxygen Delivery Method Room Air Physical Exam Narrative Physical Examination: General: Awake, alert, oriented x 3 and cooperative, seated upright in the ED bed, recent nausea and emesis with vertiginous symptoms, now improved, fatigued appearing. Skin: Normal color, normal turgor, no icterus, no cyanosis except for mild bilateral lower extremity venous stasis skin changes. HEENT: AT/NC, EOM difficult to assess given current vertiginous symptoms and necessity to keep his eyes closed to avoid intractable nausea and emesis rebound, PERRLA, dry MM, no carotid bruits or JVD noted however thickened neck makes evaluation difficult, right ear with partially visualized tympanic membrane unremarkable, notable cerumen and left ear completely impacted, pending irrigation. Lungs: Diminished, greater bases, proper effort, no rales, ronchi or wheezing. Heart: Regular rate and rhythm; no gallop, rub audible. Abdomen: Soft, morbidly obese, NTTP, ND, hyperactive BS, no HSM. Extremities: No cyanosis, no clubbing, pedal to mid alexis 1+ pitting edema which is chronic he notes. Neurological: Patient awake, alert, oriented as noted, cognitive function intact; pupils equally reactive to light and accommodation, cranial nerves grossly normal except, moving all 4 extremities, no focal deficits, recent bouts of recurrent vertigo with nystagmus when this although currently abating, no improvement with maneuvers per ED physician. Psychiatric: Affect appears fatigued, ill-appearing, no acute evidence of depressive or anxiety feelings. Results Lab / Micro Data 05/09/23 23:45 05/09/23 23:45 Labs: Laboratory Results - last 24 hr 05/09/23 23:45: WBC 7.8, RBC 3.89 L, Hgb 11.2 L, Hct 33.6 L, MCV 86.4, MCH 28.8, MCHC 33.3, RDW Std Deviation 44.9 H, RDW Coeff of Luciana 14.5, Plt Count 149 L, MPV 12.1 H, Immature Gran % (Auto) 1.500 H, Neut % (Auto) 76.6 H, Lymph % (Auto) 12.6 L, [place] % (Auto) 7.1, Eos % (Auto) 1.9, Baso % (Auto) 0.3, Absolute Neuts (auto) 5.9, Absolute Lymphs (auto) 0.98, Nucleated RBC % 0, Sodium 140, Potassium 4.3, Chloride 111 H, Carbon Dioxide 26.0, Anion Gap 3 L, BUN 20 H, Creatinine 1.25, Est GFR (MDRD) Af Amer 80, Est GFR (MDRD) Non-Af 66, BUN/Creatinine Ratio 16.0, Glucose 156 H, Calcium 8.6, Total Bilirubin 0.30, Direct Bilirubin 0.12, AST 13 L, ALT 23, Alkaline Phosphatase 69, Troponin I High Sens 9, Total Protein 6.3 L, Albumin 3.3, Globulin 3.0, Lipase 40 Radiology Impression Chest X-Ray 05/09/23 00:00 IMPRESSION: No radiographic evidence of acute cardiopulmonary disease. Electronically Signed: Toy Field MD at 1:04 EDT , Head/Neck CTA 05/10/23 00:04 IMPRESSION: 1. CTA head and neck with no acute arterial occlusive disease or other acute abnormality. 2. Mild chronic periventricular white matter disease but no evidence of acute intracranial abnormality. 3. Multilevel cervical spondylosis. Electronically Signed: Toy Field MD at 1:54 EDT , Assessment & Plan Assessment/Plan (1) TIA (transient ischemic attack): PLAN: Plan The patient is a 47 y/o M w/ PMHx: Anxiety and Depression/Bipolar disorder/Suspected Schizophrenia, Diabetes mellitus type II with chronic neuropathy, Gout, Psoriasis, Former tobacco use, Morbid obesity who presents to the [facility] ED on 05/10/23 with history of recurrent episode of dizziness described as of the room starting to spin but eventually improves and unfortunately recurring similar to his previous episode prompting ED evaluation 05/05/2023 as well as a transient for visual field cut in the left eye specifically the upper vision which has slowly resolved but he does report now having blurry vision in the left eye. #1. Recurrent episodes of dizziness with left eye blurriness and reported previous field vision deficits, possibly TIA/CVA, more likely Vertigo related with L ear recent complaints: Discussed with ED and irrigating L ear given impaction and complaints of L ear pain ongoing for > 1 week. Will admit to PCU, will obtain MRI Brain, will obtain ECHO, PT/OT/Speech/Nutrition evaluation per protocol. Will allow permissive HTN, maintain on asa, continue home statin w/ A M FLP, fall precautions. Mag, TSH, FLP, HgbA1c requested. Maintain on fall and aspiration precautions. Will continue as needed meclizine for symptoms but if not effective can certainly transition to valium and as noted irrigating L ear in the ED. COVID PCR requested. #2. Hypertension, uncontrolled, possibly hypertensive urgency with symptoms of vision changes/dizziness as noted: Given #1 and concern for CVA will need to maintain initially permissive hypertension pending work-up as noted, as needed agents per stroke protocol. #3. Diabetes mellitus type II with chronic neuropathy: Hold oral home regimen, continue home insulin regimen, hemoglobin A1c requested, nutrition consultation per stroke protocol, ADA diet, accu checks w/ ISS, continue patient chronic gabapentin regimen. #4. Chronic normocytic anemia: Admission hemoglobin 11.2, MCV 86.4, baseline hemoglobin appears 11; however, there are not a lot of lab values, last 05/05/2023 hemoglobin 11.5, continue to trend. #5. Anxiety and depression/bipolar disorder/suspected schizophrenia with chart reported history of prior significant agitation: We will continue patient home Haldol, hydroxyzine home regimen. Patient also prescribed IM every 30 day paliperidone injections. #6. Hyperlipidemia: Continue home statin regimen. AM FLP. #7. Former tobacco usage: Encourage continued tobacco cessation. #8. Morbid Obesity: Weight loss and lifestyle changes encouraged. #9. Gout: We will continue patient home allopurinol regimen. #10. DVT prophylaxis: Lovenox. Charges/Coding Visit Charges Inpatient E&M: 37671 Init Hosp L3
[2023-05-10 02:36] LABS: Magnesium 1.5 mg/dL (1.6-2.6)
[2023-05-10] MEDS: Aspirin 325 MG Tablet PO (02:58)
[2023-05-10] MEDS: Meclizine HCl 25 MG Tablet PO (02:58)
[2023-05-10] MEDS: diazePAM 2 MG Tablet PO (02:59)
[2023-05-10] MEDS: proMETHazine 25 MG/ML Syringe 12.5 MG IM (03:03)
--- NOTE | 2023-05-10 03:50 | ECHOCS_ITS ---
Reason For Study: TIA/CVA Procedure This was a 2D Doppler, Color Flow transthoracic echocardiogram. The study was technically difficult. Contrast injection was performed. Exam performed portable in patient room. Left Ventricle Normal LV size. Left ventricular systolic function is normal. The estimated ejection fraction is 55 %. No regional wall motion abnormalities noted. Right Ventricle The right ventricle is not well visualized. Atria The left atrium is mildly enlarged. Normal right atrium. Bubble contrast study negative for right to left interatrial shunt. Pulmonic Valve The pulmonic valve is not well visualized. Great Vessels Normal aortic root. Pericardium/Pleural No pericardial effusion. Medication Diluted definity 2.5ml given slow IV push to enhance endocardial definition. Performed a rapid injection of agitated mix of 9 cc saline and 1cc air to assess for atrial septal defect. Bubble Study attempted two times, IV was in the left hand. MMode/2D Measurements & Calculations LVIDd: 6.4 cm IVSd: 0.97 cm Ao root diam: 3.6 cm LVIDs: 4.8 cm LVPWd: 0.97 cm LA dimension: 3.9 cm FS: 24.9 % LAV(MOD-sp4): 85.8 ml LA A4 area: 25.1 cm2 Time Measurements MV dec time: 0.18 sec Doppler Measurements & Calculations MV E max rolando: 101.6 cm/sec Lat Peak E' Rolando: 11.8 cm/sec Med Peak E' Rolando: 6.9 cm/sec MV A max rolando: 81.2 cm/sec E/E' lat: 8.6 E/E' med: 14.6 MV E/A: 1.3 MV V2 max: 89.9 cm/sec MV P1/2t max rolando: 89.9 cm/sec Ao V2 max: 100.9 cm/sec MV max P.2 mmHg MV P1/2t: 52.5 msec Ao max P.1 mmHg MV V2 mean: 57.2 cm/sec MV mean P.5 mmHg MV dec slope: 501.5 cm/sec2 MV V2 VTI: 23.2 cm MVA(P1/2t): 4.2 cm2 LV V1 max: 101.1 cm/sec PA V2 max: 79.2 cm/sec LV V1 max P.1 mmHg ECHO/Echo Complete W/ Contrast Interpretation Summary Normal LV size. Left ventricular systolic function is normal. The estimated ejection fraction is 55 %. The left atrium is mildly enlarged. Bubble contrast study negative for right to left interatrial shunt. Contrast injection was performed. Ordering Physician: Anitha Bullock Performed By: Kei Saxena RCS
--- NOTE | 2023-05-10 03:50 | MRI_ITS ---
EXAM: MR HEAD WITHOUT INTRAVENOUS CONTRAST CLINICAL INDICATION: CVA, recurrent episodes of dizziness, vomiting, L eye blurriness-- resolved now TECHNIQUE: Multiplanar and multisequence MR images of the brain were obtained without intravenous contrast. This report was created using [employer] report generation technology. COMPARISON: CT head without contrast 05/05/2023. CTA head with contrast 05/10/2023. FINDINGS: BRAIN AND EXTRA-AXIAL SPACES: Unremarkable. No intra- or extra-axial hemorrhage. No evidence of acute infarct. No intracranial mass or mass effect. There is preservation of the cerrato/white matter interface. Posterior fossa structures are unremarkable. Ventricles are appropriate for age. No hydrocephalus. Basal cisterns are patent. SELLA: Unremarkable. Normal sella turcica, pituitary gland, infundibular stalk, optic chiasm and hypothalamus. AUDITORY SYSTEM: Unremarkable. The internal auditory canals are patent. BONES/JOINTS: Unremarkable. No discrete lytic or blastic abnormalities. SINUSES: Unremarkable as visualized. Clear. MASTOID AIR CELLS: Minimal mucosal edema in the left temporal mastoid air cells. Normal right temporal mastoid air cells. ORBITS: Unremarkable as visualized. Both globes, extraocular muscles, optic nerves and retrobulbar fat appear unremarkable. VASCULATURE: Unremarkable as visualized. Normal flow voids in the major intracranial circulation. MRI/Brain without Contrast IMPRESSION: Minimal mucosal edema in the left temporal mastoid bone otherwise negative MRI brain without contrast. Electronically Signed: Marko Jones MD at 12:29 EDT ,
[2023-05-10] MEDS: 0.9% Normal Saline (1000mL) 1,000 ML 100 ML IV (05:31)
[2023-05-10] MEDS: hydrOXYzine PAM 25 MG Capsule 50 MG PO ×3 (05:37→23:35)
[2023-05-10 06:29] LABS: Absolute Lymphocyte Count 0.86 X10^3/uL (0.83-4.51); Absolute Neutrophil Count 7.8 X10^3/uL (2.0-7.7); Basophil# 0.01 X10^3/uL; Basophil% 0.1 % (0-1); Eosinophil# 0.01 X10^3/uL; Eosinophils% 0.1 % (0-5); Hematocrit 33.7 % (40-54); Hemoglobin 10.9 g/dL (13.0-16.5); Lymphocyte # 0.86 X10^3/ul (0.83-4.51); Lymphocyte % 9.5 % (19-41); Mean Corp Hgb Conc 32.3 g/dL (32-36); Mean Corpuscular Hgb 28.2 pg (27.0-32.0); Mean Corpuscular Volume 87.1 fL (80-94); Mean Platelet Vol. 12.2 fl (6.2-12.0); Monocyte# 0.32 X10^3/uL; Monocyte% 3.5 % (0-10); NRBC Flagged by Analyzer 0 % (0-5); Neutrophil # 7.78 X10^3/uL (2.7-7.7); Neutrophil % 85.9 % (47-70); Platelet Count 171 K/mm3 (150-450); RBC Distribution Width CV 14.4 % (11.6-14.6); RBC Distribution Width SD 45.5 fl (35.1-43.9); Red Blood Count 3.87 M/mm3 (4.6-6.2); White Blood Count 9.1 K/mm3 (4.4-11.0)
[2023-05-10] MEDS: Magnesium Sulfate 2 GM in Dextrose 5%-Water (100mL Bag) 100 ML IV (07:02)
[2023-05-10 07:44] LABS: AST(SGOT) 19 U/L (15-37); Alanine Aminotransfer ALT/SGPT 20 U/L (16-61); Albumin, Serum 3.1 g/dL (3.2-5.0); Alkaline Phosphatase 68 U/L (45-117); Anion Gap 5 (5-15); BUN 18 mg/dL (7-18); BUN/Creat Ratio 16.7 RATIO (10-20); Calcium,Total 8.4 mg/dL (8.5-10.1); Chloride 111 mmol/L (98-107); Creatinine, Serum 1.08 mg/dL (0.70-1.30); EST Glomerular Filtration Rate 78 mL/min (>60); Est Glom Filt Rate - Afr Amer 95 mL/min (>60); Estimated Creatinine Clearance 99.37 ml/min; Globulin 3.2 g/dL (2.2-4.2); Glucose 196 mg/dL (74-106); Protein, Total 6.3 g/dL (6.4-8.2); Sodium Level 141 mmol/L (136-145); Thyroid Stim Hormone (TSH) 1.62 uIU/mL (0.358-3.74)
[2023-05-10 08:25] LABS: Hemoglobin A1c 6.6 % (3.8-5.6)
[2023-05-10] MEDS: Enoxaparin 40 MG/0.4 ML Syringe SC ×2 (09:15→23:36)
[2023-05-10] MEDS: Allopurinol 300 MG Tablet PO (09:15)
[2023-05-10] MEDS: Aspirin 81 MG TAB.CHEW PO (09:15)
[2023-05-10] MEDS: Gabapentin 600 MG Tablet PO ×2 (09:21→23:35)
[2023-05-10] MEDS: Insulin Lispro 100 UNIT/ML INSULN.PEN SC ×3 (09:28→17:21)
[2023-05-10] MEDS: LORazepam 2 MG/ML Syringe 1 MG IV (09:44)
[2023-05-10 10:09] LABS: Bedside Glucose 195 mg/dL (74-106)
[2023-05-10 12:18] LABS: Bedside Glucose 183 mg/dL (74-106)
[2023-05-10] MEDS: Insulin Lispro 100 UNIT/ML INSULN.PEN 25 UNIT SC ×2 (12:28→17:20)
--- NOTE | 2023-05-10 12:31 | PN_ITS ---
Subjective Subjective Patient seen and examined. He did complain of nausea and vomiting. He still feels dizzy and lightheaded. He admits to several episodes of vomiting today. He also complains of some tingling and numbness in his lower extremities. He states he recently had a left ear infection and had to have his ear cleaned out. Review of systems otherwise negative. Objective Data Objective Data Vital Signs: Vital Signs Temp Pulse Resp BP Pulse Ox O2 Del Method 97.3 F L 82 16 159/81 H 96 Room Air 05/10/23 09:00 05/10/23 09:00 05/10/23 09:00 05/10/23 09:00 05/10/23 09:00 05/10/23 09:20 Oxygen Delivery Method Room Air Weight: 386 lb 7.525 oz Body Mass Index (BMI) 49.6 Intake & Output: Intake and Output for Last 24 Hours 05/08/23 05/09/23 05/10/23 23:59 23:59 23:59 Intake Total 1529 / 1529 Balance 1529 / 1529 Lab / Micro Data 05/10/23 05:51 05/10/23 05:51 Labs: Laboratory Results - last 24 hr 05/09/23 23:45: WBC 7.8, RBC 3.89 L, Hgb 11.2 L, Hct 33.6 L, MCV 86.4, MCH 28.8, MCHC 33.3, RDW Std Deviation 44.9 H, RDW Coeff of Luciana 14.5, Plt Count 149 L, MPV 12.1 H, Immature Gran % (Auto) 1.500 H, Neut % (Auto) 76.6 H, Lymph % (Auto) 12.6 L, [place] % (Auto) 7.1, Eos % (Auto) 1.9, Baso % (Auto) 0.3, Absolute Neuts (auto) 5.9, Absolute Lymphs (auto) 0.98, Nucleated RBC % 0, Sodium 140, Potassium 4.3, Chloride 111 H, Carbon Dioxide 26.0, Anion Gap 3 L, BUN 20 H, Creatinine 1.25, Est GFR (MDRD) Af Amer 80, Est GFR (MDRD) Non-Af 66, BUN/Creatinine Ratio 16.0, Glucose 156 H, Calcium 8.6, Magnesium 1.5 L, Total Bilirubin 0.30, Direct Bilirubin 0.12, AST 13 L, ALT 23, Alkaline Phosphatase 69, Troponin I High Sens 9, Total Protein 6.3 L, Albumin 3.3, Globulin 3.0, Lipase 40 05/10/23 05:51: WBC 9.1, RBC 3.87 L, Hgb 10.9 L, Hct 33.7 L, MCV 87.1, MCH 28.2, MCHC 32.3, RDW Std Deviation 45.5 H, RDW Coeff of Luciana 14.4, Plt Count 171, MPV 12.2 H, Immature Gran % (Auto) 0.900, Neut % (Auto) 85.9 H, Lymph % (Auto) 9.5 L , [place] % (Auto) 3.5, Eos % (Auto) 0.1, Baso % (Auto) 0.1, Absolute Neuts (auto) 7.8 H, Absolute Lymphs (auto) 0.86, Nucleated RBC % 0, Sodium 141, Potassium 5 .0, Chloride 111 H, Carbon Dioxide 25.0, Anion Gap 5, BUN 18, Creatinine 1.08, Estim Creat Clear Calc 99.37, Est GFR (MDRD) Af Amer 95, Est GFR (MDRD) Non-Af 78, BUN/Creatinine Ratio 16.7, Glucose 196 H, Hemoglobin A1c 6.6 H, Calcium 8.4 L, Total Bilirubin 0.30, AST 19, ALT 20, Alkaline Phosphatase 68, Total Protein 6.3 L, Albumin 3.1 L, Globulin 3.2, Albumin/Globulin Ratio 1.0, TSH 1.62 05/10/23 09:26: POC Glucose 195 H 05/10/23 11:55: POC Glucose 183 H Micro: Microbiology 05/10/23 03:30 Mucosa - Nose Coronavirus COVID-19 PCR - Final Radiography Diagnostic Testing: Radiology Impression Chest X-Ray 05/09/23 00:00 IMPRESSION: No radiographic evidence of acute cardiopulmonary disease. Electronically Signed: Toy Field MD at 1:04 EDT , Head/Neck CTA 05/10/23 00:04 IMPRESSION: 1. CTA head and neck with no acute arterial occlusive disease or other acute abnormality. 2. Mild chronic periventricular white matter disease but no evidence of acute intracranial abnormality. 3. Multilevel cervical spondylosis. Electronically Signed: Toy Field MD at 1:54 EDT , Brain MRI 05/10/23 03:50 IMPRESSION: Minimal mucosal edema in the left temporal mastoid bone otherwise negative MRI brain without contrast. Electronically Signed: Marko Jones MD at 12:29 EDT , Physical Exam Const alert and oriented x3 Constitutional Narrative: morbidly obese, looks uncomfortable Orientation / Consciousness: lethargic HEENT normocephalic and head/scalp atraumatic Mouth: dry mucous membranes Eyes PERRL and EOMs intact bilaterally Neck no lymphadenopathy and supple Lymph Lymphatic: no lymphadenopathy noted and no lymphedema noted Resp normal respiratory effort, normal air movement and clear to auscultation bilaterally Cardio regular rate, regular rhythm, S1 normal heart sound, S2 normal heart sound and no murmurs GI normal to inspection, nondistended, normoactive bowel sounds, soft to palpation, non-tender and non-distended Extremity normal capillary refill, no clubbing, cyanosis or edema and no calf tenderness Skin General Skin Exam: no breakdown Neuro no focal motor deficits, no sensory deficits noted and deep tendon reflexes 2+ bilaterally Neuro Narrative: has vertical and horizontal nystagmus of both eyes Motor Exam: strength 5/5 throughout and general weakness Psych thought process normal and cooperative Appearance: appropriate Assessment & Plan Assessment/Plan (1) Light headed: (2) Dizziness: PLAN: Plan #Vertigo * Patient still complains of dizziness and lightheadedness. This is worsened with movement. He also has vertical and horizontal nystagmus. * He recently had a left ear infection and says his left ear was cleaned out. CT of the brain showed no evidence of stroke. CT of the head and neck showed no evidence of hemodynamically significant stenosis. * MRI of the brain also shows no evidence of a stroke and showed minimal mucosal edema in the left temporal mastoid bone * he denies any impaired hearing * I suspect his symptoms are likely due to his recent ear infection resulting in possible vestibular neuronitis versus BPPV. We will get neurology consult. * DC aspirin and high intensity statin. Placed on meclizine. * PT OT consult. Fall precautions. * IV Zofran as needed. #Hypertension: BP meds held on account of concern for stroke to allow for permissive hypertension. Since stroke has been ruled out we will resume BP meds. #Type 2 diabetes mellitus with chronic neuropathy * On Lantus 35 units nightly. Insulin sliding scale. Accu-Cheks ACHS. A1c ordered and pending. On gabapentin. * #Hyperlipidemia: On statin #History of gout: On allopurinol #Super morbid obesity: BMI is 49.6. Complicates acute care, expected recovery and prognosis. DVT prophylaxis; lovenox Charges/Coding Visit Charges Inpatient E&M: 77612 Subs Hosp L2
[2023-05-10 16:40] LABS: Bedside Glucose 175 mg/dL (74-106)
[2023-05-10] MEDS: Atorvastatin Calcium 80 MG Tablet PO (23:35)
[2023-05-10 23:56] LABS: Bedside Glucose 130 mg/dL (74-106)
[2023-05-11] MEDS: hydrOXYzine PAM 25 MG Capsule 50 MG PO (05:02)
[2023-05-11 05:04] VITALS: BP 164/97; PULSE 89; RESP 18; TEMP 36.6; O2SAT 93
[2023-05-11 05:16] VITALS: BMI 49.7
[2023-05-11 05:33] LABS: Absolute Lymphocyte Count 2.42 X10^3/uL (0.83-4.51); Absolute Neutrophil Count 5.4 X10^3/uL (2.0-7.7); Basophil# 0.02 X10^3/uL; Basophil% 0.2 % (0-1); Eosinophil# 0.25 X10^3/uL; Eosinophils% 2.9 % (0-5); Hemoglobin 10.8 g/dL (13.0-16.5); Lymphocyte # 2.42 X10^3/ul (0.83-4.51); Mean Corp Hgb Conc 31.8 g/dL (32-36); Mean Corpuscular Hgb 28.1 pg (27.0-32.0); Mean Corpuscular Volume 88.3 fL (80-94); Mean Platelet Vol. 11.8 fl (6.2-12.0); Monocyte# 0.54 X10^3/uL; Monocyte% 6.3 % (0-10); NRBC Flagged by Analyzer 0 % (0-5); Neutrophil # 5.36 X10^3/uL (2.7-7.7); Platelet Count 166 K/mm3 (150-450); RBC Distribution Width CV 14.5 % (11.6-14.6); RBC Distribution Width SD 45.8 fl (35.1-43.9); Red Blood Count 3.85 M/mm3 (4.6-6.2); White Blood Count 8.6 K/mm3 (4.4-11.0)
[2023-05-11 05:59] LABS: Anion Gap 3 (5-15); BUN 19 mg/dL (7-18); BUN/Creat Ratio 16.5 RATIO (10-20); Calcium,Total 8.4 mg/dL (8.5-10.1); Chloride 110 mmol/L (98-107); Cholesterol 114 mg/dL (200); Creatinine, Serum 1.15 mg/dL (0.70-1.30); EST Glomerular Filtration Rate 73 mL/min (>60); Est Glom Filt Rate - Afr Amer 88 mL/min (>60); Estimated Creatinine Clearance 93.32 ml/min; Glucose 158 mg/dL (74-106); High Density Lipoprotein 35 mg/dL; Potassium 4.3 mmol/L (3.5-5.1); Sodium Level 140 mmol/L (136-145); Triglycerides 184 mg/dL; Very Low Density Lipoprotein 37 mg/dL (5-40)
[2023-05-11 06:00] VITALS: BP 139/84
[2023-05-11] MEDS: Insulin Lispro 100 UNIT/ML INSULN.PEN 25 UNIT SC ×2 (08:55→11:47)
[2023-05-11] MEDS: Allopurinol 300 MG Tablet PO (08:56)
[2023-05-11] MEDS: 0.9% Saline Lock 10 ML Syringe IV (08:56)
[2023-05-11] MEDS: Enoxaparin 40 MG/0.4 ML Syringe SC (08:56)
[2023-05-11] MEDS: predniSONE 20 MG Tablet 60 MG PO (08:56)
[2023-05-11] MEDS: Aspirin 81 MG TAB.CHEW PO (08:56)
[2023-05-11] MEDS: Gabapentin 600 MG Tablet PO (09:01)
[2023-05-11 10:35] VITALS: O2SAT 94
--- NOTE | 2023-05-11 10:56 | DS.PCM_ITS ---
Providers Date of Admission: 05/10/23 Date of Discharge: 05/11/23 Primary Care Physician: Dr. Elizabeth Hurst, DO SOC Tele Neurology Reason For Visit: VERTIGO, POSSIBLE TIA/CVA Diagnosis Discharge Diagnosis (1) Light headed: Status: Acute Code(s): R42 - Dizziness and giddiness (2) Dizziness: Status: Acute Code(s): R42 - Dizziness and giddiness Medications at Discharge Home Medications doxepin 25 mg capsule 25 - 50 mg PO DAILY PRN PRN Anxiety 05/17/18 albuterol sulfate 90 mcg/actuation aerosol inhaler 2 inh inhalation Q4H PRN shortness of breath or wheezing 05/05/23 allopurinol 300 mg tablet 300 mg PO DAILY 05/05/23 atorvastatin 80 mg tablet 80 mg PO QHS 05/05/23 cholecalciferol (vitamin D3) 1,250 mcg (50,000 unit) capsule 50,000 unit PO Q7D 05/05/23 gabapentin 600 mg tablet 600 mg PO Q12H 05/05/23 haloperidol 5 mg tablet 5 mg PO .COMPLEX 05/05/23 hydroxyzine HCl 50 mg tablet 50 mg PO Q8H 05/05/23 ibuprofen 800 mg tablet 800 mg PO Q8H 05/05/23 insulin glargine 100 unit/mL (3 mL) subcutaneous pen (Lantus Solostar U-100 Insulin) 75 unit subcut QHS 05/05/23 insulin lispro 100 unit/mL subcutaneous pen (Humalog KwikPen (U-100) Insulin) 25 unit subcut TIDCM 05/05/23 lisinopril 10 mg tablet 10 mg PO DAILY 05/05/23 metformin 500 mg tablet 2,000 mg PO QHS 05/05/23 paliperidone palmitate 234 mg/1.5 mL intramuscular syringe (Invega Sustenna) 234 mg IM Q30D 05/05/23 sitagliptin phosphate 100 mg tablet (Januvia) 100 mg PO DAILY 05/05/23 meclizine 25 mg tablet 25 mg PO TID PRN dizziness #15 tabs 05/11/23 ondansetron 4 mg disintegrating tablet 4 mg PO Q8H PRN nausea and vomiting #15 tabs 05/11/23 prednisone 10 mg tablet 10 mg PO DAILY #39 tabs 10/09/23 Hospital Course Operations None Procedures - (MRI brain/CT pain CTA head and neck) Summary of Care Provided Minutes Spent on Discharge: 37 Hospital Course: Mr. Lennon is a 47-year-old white male who presented to the emergency dep artment at [facility] on 05/10/2023 complaining of dizziness, vertigo, nausea and vomiting and recent left ear pain. The patient reports today history of recurrent episodes of dizziness which were described as the room spinning with eventual improvement but reoccurrence eliciting nausea and vomiting that prompted ED evaluation on 05/05/2023. At that time he also complained of left ear discomfort that had been ongoing for about a week since onset of presenting symptoms. CT of the brain was done at that time which was unremarkable and his labs were overall unremarkable so he was discharged home however his symptoms persisted and actually worsened so he came back to the emergency department to be reevaluated on 05/10/2023. Vital signs on presentation were unremarkable other than his blood pressure being elevated at 182/83. His CBC showed a mild anemia that was stable when compared to his most recent ER visit on the third, but was otherwise unremarkable. His chemistry pa belle was unremarkable. His hemoglobin A1c was obtained and found to be 6.6 indicating good control. Lipid panel showed a total cholesterol of 114 with an LDL of 42/HDL of 35/triglyceride level 184. As noted above he had a CT of his brain done on the third which was unremarkable. CTA of the head and neck showed no acute arterial occlusive disease or other acute abnormalities, mild chronic periventricular white matter disease but no acute intracranial abnormality and multiple level cervical spondylosis. An MRI will of his brain was obtained and showed minimal mucosal edema in the left temporal mastoid bone but was otherwise unremarkable. Neurology was consulted and felt that he had labyrinthitis consistent with his recent inner ear issues and recommended initiating steroids 60 mg x 5 days, 50 mg x 1 day, 40 mg x 1 day, 30 mg x 1 day, 20 mg x 1 day, and 10 mg x 1 day. He received his initial 60 mg dose in the hospital. I did discuss with him that his blood sugars will remain elevated while he is on steroids but should resume back to his baseline once he has tapered off his steroids. He voiced understanding. We also discharged him with meclizine 25 mg p.o. 3 times daily as needed for dizziness and an antiemetic in case he ends up with nausea related to his dizziness. Overall he stated he was feeling much better. We discussed the etiology of labyrinthitis and he was given information on this at discharge as well. We have recommended that he not drive, operate heavy machinery, or climb ladders until his vertigo resolves. I have also advised him to follow-up with ENT and consider possible outpatient vestibular rehab after discharge depending on his progress. He was able to be discharged home in stable condition on 05/11/2023. I have given him information to follow- up with ENT and advised him to follow-up with his primary care physician within the next 2 weeks. Discharge diagnoses: Labyrinthitis left ear Vertigo DM-2 Gout Upper lip Vitamin D deficiency Neuropathy anxiety Depression Hypertension Morbid obesity Physical Exam Narrative Patient indicates he is feeling much better overall. Dizziness has improved. Anxious to go home. Const alert, oriented x3, no apparent distress, no limitations and well nourished; Negative for average body habitus or healthy appearing Constitutional Narrative: Morbidly obese, middle-aged, white male, lying in bed, appears comfortable and nontoxic, pleasant General Appearance: cooperative, comfortable, well kempt and well developed Orientation / Consciousness: awake, oriented to person, oriented to place and oriented to time Exam Limitations: no limitations Nutritional Appearance: morbidly obese HEENT normocephalic, head/scalp atraumatic, hearing grossly normal bilaterally and moist oral mucous membranes HEENT Narrative: Mallampati 2-3, no thrush Eyes PERRL and EOMs intact bilaterally Eyes Narrative: No nystagmus noted at rest, no scleral icterus Neck supple Neck Narrative: Neck is short and thick, trachea midline Resp normal respiratory effort, no retractions, no use of accessory muscles and clear to auscultation bilaterally Auscultation: Negative for rales, rhonchi or wheezes Cardio regular rate, regular rhythm, S1 normal heart sound, S2 normal heart sound, no murmurs, no rub, no gallops and no clicks GI normal to inspection, nondistended, normoactive bowel sounds, soft to palpation and non-tender Extremity Extremity Narrative: Pedal pulses are 2+, trace bilateral lower extremity edema, no cyanosis or clubbing Skin no rashes or lesions noted, no wounds and no jaundice Neuro oriented x3, CN's II-XII intact bilaterally, moves all extremities and no focal motor deficits Speech: speech normal Psych Psych Narrative: Eye contact is good, patient is affect is mildly flat, interacts normally Weight / BMI Weight Weight: 175.8 kg Body Mass Index (BMI) 49.7 ABG / Lab / Microbiology Data 05/11/23 05:20 05/11/23 05:20 Laboratory: Laboratory Results - last 24 hr 05/10/23 11:55: POC Glucose 183 H 05/10/23 16:19: POC Glucose 175 H 05/10/23 23:33: POC Glucose 130 H 05/11/23 05:20: WBC 8.6, RBC 3.85 L, Hgb 10.8 L, Hct 34.0 L, MCV 88.3, MCH 28.1, MCHC 31.8 L, RDW Std Deviation 45.8 H, RDW Coeff of Luciana 14.5, Plt Count 166, MPV 11.8, Immature Gran % (Auto) 0.600, Neut % (Auto) 62.0, Lymph % (Auto) 28.0, [place] % (Auto) 6.3, Eos % (Auto) 2.9, Baso % (Auto) 0.2, Absolute Neuts (auto) 5.4, Absolute Lymphs (auto) 2.42, Nucleated RBC % 0, Sodium 140, Potassium 4.3, Chloride 110 H, Carbon Dioxide 27.0, Anion Gap 3 L, BUN 19 H, Creatinine 1.15, Estim Creat Clear Calc 93.32, Est GFR (MDRD) Af Amer 88, Est GFR (MDRD) Non-Af 73, BUN/Creatinine Ratio 16.5, Glucose 158 H, Calcium 8.4 L, Triglycerides 184, Cholesterol 114, LDL Cholesterol 42, VLDL Cholesterol 37, HDL Cholesterol 35 L Microbiology: Microbiology 05/10/23 03:30 Mucosa - Nose Coronavirus COVID-19 PCR - Final Radiography Diagnostic Testing: Radiology Impression Brain MRI 05/10/23 03:50 IMPRESSION: Minimal mucosal edema in the left temporal mastoid bone otherwise negative MRI brain without contrast. Electronically Signed: Marko Jones MD at 12:29 EDT , D/C Instructions Discharge Diet: Low fat / Low cholesterol and 2000 Calorie Control Diet Discharge Activity: Return to Normal Activity Return to work on: 05/12/23 (Okay to return to work as long as restrictions can be met with no driving, operating heavy machinery, or drive climbing ladders until vertigo is completely resolved) Meaningful Use Info Meaningful Use Diagnoses (Choose all that apply): None applicable Discharge Plan Admission Admit Date/Time: 05/10/23 02:18 Primary Reason for Your Visit: Vertigo Attending Provider: Rani Grace Primary Care Provider: Elizabeth Hurst Consulting Providers: Anitha Bullock; Kenia Marino Instructions Patient Instructions: Labyrinthitis Additional Instructions / Restrictions: 1. No driving, climbing ladders, operating power tools until vertigo resolves 2. Please call ENT listed below for outpt follow-up. 3. As per discussion, your blood sugars will run elevated while you are on steroids but should resume back to your baseline once steroids are tapered. Discharge Orders/Prescriptions Prescriptions: New prednisone 10 mg tablet 10 mg PO DAILY Qty: 39 0RF Rx Instructions: Take 6 tablets x 4 days, take 5 tablets x 1 day, take 4 tablets x 1 day, take 3 tablets x 1 day, take 2 tablets x 1 day, take 1 tablet x 1 day ondansetron 4 mg tablet,disintegrating 4 mg PO Q8H PRN (Reason: nausea and vomiting) Qty: 15 0RF meclizine 25 mg tablet 25 mg PO TID PRN (Reason: dizziness) Qty: 15 0RF Continued doxepin 25 MG capsule 25 - 50 mg PO DAILY PRN PRN (Reason: Anxiety) allopurinol 300 mg tablet 300 mg PO DAILY Patient Comments: take 1 tablet by mouth once daily albuterol sulfate 90 mcg/actuation HFA aerosol inhaler 2 inh INHALATION Q4H PRN (Reason: shortness of breath or wheezing) Patient Comments: inhale 2 puffs by mouth every 4 hours if needed for wheezing metformin 500 mg tablet 2,000 mg PO QHS Patient Comments: take 4 tablets by mouth at bedtime atorvastatin 80 mg tablet 80 mg PO QHS Patient Comments: take 1 tablet by mouth at bedtime gabapentin 600 mg tablet 600 mg PO Q12H Patient Comments: take 1 tablet by mouth twice a day haloperidol 5 mg tablet 5 mg PO .COMPLEX Patient Comments: take 1 tablet by mouth once daily if needed 1 week PRIOR TO INJECTION Rx Instructions: 5 mg orally daily one week prior to injection; ibuprofen 800 mg tablet 800 mg PO Q8H Patient Comments: take 1 tablet by mouth three times a day if needed hydroxyzine HCl 50 mg tablet 50 mg PO Q8H Patient Comments: take 1 tablet by mouth three times a day if needed for anxiety lisinopril 10 mg tablet 10 mg PO DAILY Patient Comments: take 1 tablet by mouth once daily insulin lispro [Humalog KwikPen Insulin] 100 unit/mL insulin pen 25 unit SUBCUT TIDCM Patient Comments: inject 25 units subcutaneously three times a day before meals Januvia 100 mg tablet 100 mg PO DAILY Patient Comments: take 1 tablet by mouth daily cholecalciferol (vitamin D3) 1,250 mcg (50,000 unit) capsule 50,000 unit PO Q7D Patient Comments: take 1 capsule by mouth every week insulin glargine [Lantus Solostar U-100 Insulin] 100 unit/mL (3 mL) insulin pen 75 unit SUBCUT QHS Patient Comments: inject 75 units subcutaneously at bedtime Invega Sustenna 234 mg/1.5 mL syringe 234 mg IM Q30D Patient Comments: 05/10/23 Referrals / Follow Up: Elizabeth Hurst DO [Primary Care Provider] - Within 2 Weeks Esvin Amos MD [Med Staff - Active Staff] - Within 2 Weeks (Call after discharge to be seen with regards to your vertigo for follow-up) Disposition Disposition (needs filled in before D/C Order can be placed): Home, Self Care Charges/Coding Visit Charges Inpatient E&M: 09620 Disch Hosp >30min
[2023-05-11 11:13] LABS: Bedside Glucose 144 mg/dL (74-106)
--- NOTE | 2023-05-11 11:16 | CASEMGMT ---
Met with patient to complete NAVARRO form. NAVARRO form explained to patient who voiced understanding and signed form. Original form placed in pt?s chart and copy provided to?patient. Celestina Ren, Discharge Planning Asst.
--- NOTE | 2023-05-11 11:23 | PHA.DC_ITS ---
Pharmacy [facility] has performed discharge medication reconciliation and counseling for this patient. The patient's discharge medication list was reviewed for discrepancies and discrepancies were resolved. The patient was counseled on the following discharge medications and changes in medications for homegoing were reviewed. The Reason for Use, instructions for use, and potential side effects were reviewed for all new medications. The patient's questions regarding all of their medications were answered. 1. Prednisone 60 mg daily x 4 days, then 50, 40, 30, 20, 10 mg daily each x 1 day 2. Ondansetron 4 mg ODT Q8H PRN nausea 3. Meclizine 25 mg PO TID PRN dizziness The patient was able to verbally demonstrate an understanding of their discharge medications. Medications at Discharge Home Medications doxepin 25 mg capsule 25 - 50 mg PO DAILY PRN PRN Anxiety 05/17/18 albuterol sulfate 90 mcg/actuation aerosol inhaler 2 inh inhalation Q4H PRN shortness of breath or wheezing 05/05/23 allopurinol 300 mg tablet 300 mg PO DAILY gout 05/05/23 atorvastatin 80 mg tablet 80 mg PO QHS cholesterol 05/05/23 cholecalciferol (vitamin D3) 1,250 mcg (50,000 unit) capsule 50,000 unit PO Q7D vitamin 05/05/23 gabapentin 600 mg tablet 600 mg PO Q12H nerve pain 05/05/23 haloperidol 5 mg tablet 5 mg PO .COMPLEX mental health 05/05/23 hydroxyzine HCl 50 mg tablet 50 mg PO Q8H anxiety 05/05/23 ibuprofen 800 mg tablet 800 mg PO Q8H pain 05/05/23 insulin glargine 100 unit/mL (3 mL) subcutaneous pen (Lantus Solostar U-100 Insulin) 75 unit subcut QHS diabetes 05/05/23 insulin lispro 100 unit/mL subcutaneous pen (Humalog KwikPen (U-100) Insulin) 25 unit subcut TIDCM diabetes 05/05/23 lisinopril 10 mg tablet 10 mg PO DAILY blood pressure 05/05/23 metformin 500 mg tablet 2,000 mg PO QHS diabetes 05/05/23 paliperidone palmitate 234 mg/1.5 mL intramuscular syringe (Invega Sustenna) 234 mg IM Q30D mental health 05/05/23 sitagliptin phosphate 100 mg tablet (Januvia) 100 mg PO DAILY diabetes 05/05/23 meclizine 25 mg tablet 25 mg PO TID PRN dizziness #15 tabs 05/11/23 ondansetron 4 mg disintegrating tablet 4 mg PO Q8H PRN nausea and vomiting #15 tabs 05/11/23 prednisone 10 mg tablet 10 mg PO DAILY #39 tabs 05/11/23
[2023-05-11 11:36] LABS: Bedside Glucose 160 mg/dL (74-106)
[2023-05-11 11:44] VITALS: BP 145/91; PULSE 90; RESP 16; TEMP 36.1; O2SAT 96
[2023-05-11] MEDS: Insulin Lispro 100 UNIT/ML INSULN.PEN SC (11:48)
[2023-05-11 13:18] VITALS: BMI 49.7
--- NOTE | 2023-05-11 13:58 | CASEMGMT ---
ELVIS HOOVER in to discuss needs at discharge with patient. Patient states he will need walker and prefers [employer]. RN KIKO discuss levels or care for additional therapy. Patient state he might consider outpatient therapy, script to be provided to patient and will schedule on his own. ELVIS HOOVER updated hospitalist, scripts received for walker and outpatient therapy. ELVIS HOOVER sent referral to [employer] via [facility] and arranged for delivery to patient's room. Script for outpatient therapy and [facility] information provided and placed in discharge packet. Patient had no further questions or concerns at this time.
[2023-05-11] MEDS: Meclizine HCl 25 MG Tablet PO (15:34)
== END 2023-05-11 15:57 | disposition home or self-care (01) ==
LOC: ED 05-10 00:30 → PCU 05-10 04:00
PROVIDERS: Student in an Organized Health Care Education/Training Program; Admitting Provider Family Medicine; Emergency Provider Student in an Organized Health Care Education/Training Program; Visit Provider Internal Medicine
DX: H83.02 Labyrinthitis, left ear (principal); F31.9 Bipolar disorder, unspecified; E11.40 Type 2 diabetes mellitus with diabetic neuropathy, unspecified; E66.01 Morbid (severe) obesity due to excess calories; Z68.42 Body mass index [BMI] 45.0-49.9, adult; Z79.4 Long term (current) use of insulin; H53.9 Unspecified visual disturbance; Z87.891 Personal history of nicotine dependence; E55.9 Vitamin D deficiency, unspecified; M10.9 Gout, unspecified; F41.9 Anxiety disorder, unspecified; I10 Essential (primary) hypertension; Z79.899 Other long term (current) drug therapy; Z79.84 Long term (current) use of oral hypoglycemic drugs
CPT/HCPCS: 36415; 70496; 70498; 70551; 71045; 80048; 80053; 80061; 80076; 82962; 83036; 83690; 83735; 84443; 84484; 85025; 87635; 92523; 92610; 93005; 93306; 94668; 94762; 96361; 96372; 96374; 96375; 97162; 97166; 97530; 97535; 99221; 99252; 99285; 99406; J7030; Q9957; Q9967; A4216; C8929; G0378; G0463; J2405

== ENCOUNTER 2025-04-17 18:38 | Emergency (ER) | payer MEDICARE, MEDICAID, SELFPAY ==
[2025-04-17 18:39] VITALS: BP 129/83; PULSE 99; RESP 18; TEMP 36.3; O2SAT 96
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
[2025-04-17 21:03] VITALS: BP 140/82; PULSE 87; RESP 18; TEMP 36.3; O2SAT 96
== END 2025-04-17 21:04 | disposition home or self-care (01) ==
PROVIDERS: Emergency Provider Student in an Organized Health Care Education/Training Program; Visit Provider Student in an Organized Health Care Education/Training Program
DX: M54.50 Low back pain, unspecified (principal); F31.9 Bipolar disorder, unspecified; E11.40 Type 2 diabetes mellitus with diabetic neuropathy, unspecified; Z79.4 Long term (current) use of insulin; G89.29 Other chronic pain; E66.9 Obesity, unspecified; V89.2XXA Person injured in unspecified motor-vehicle accident, traffic, initial encounter; F41.9 Anxiety disorder, unspecified; M10.9 Gout, unspecified; Z79.84 Long term (current) use of oral hypoglycemic drugs; Z79.899 Other long term (current) drug therapy; Z87.891 Personal history of nicotine dependence
CPT/HCPCS: 72131; 99282